=== PATIENT | male | born 1935 | race Caucasian/White ===

== ENCOUNTER 2017-11-29 09:49 | Inpatient (IN) | payer MEDICARE ==
[~2017-11-29] VITALS: Ht 172.7 cm; Wt 71.2 kg
[2017-11-29] VITALS (7 sets, daily range): BP systolic 85–102; BP diastolic 45–58
[2017-11-29 10:07] LABS: BASOPHILS # (AUTO) 0.1 K/uL (0.0-8.0); BASOPHILS % (AUTO) 0.6 % (0.0-2.0); EOSINOPHILS % (AUTO) 0.3 % (0.0-7.0); HEMATOCRIT 25.1 % (36.7-47.1); HEMOGLOBIN 8.4 g/dL (12.5-16.3); LYMPHOCYTES # (AUTO) 0.8 K/uL (20.0-40.0); MEAN CORPUSCULAR HEMOGLOBIN 27.4 uug (23.8-33.4); MEAN CORPUSCULAR HGB CONC 34 g/dL (32.5-36.3); MEAN CORPUSCULAR VOLUME 81.7 fL (73.0-96.2); MONOCYTES # (AUTO) 1.2 K/uL (2.0-10.0); MONOCYTES % (AUTO) 9.8 % (0.0-11.0); NEUTROPHILS # (AUTO) 10.6 K/uL (1.8-8.9); NEUTROPHILS % (AUTO) 83.3 % (38.5-71.5); PLATELET COUNT (AUTO) 259 K/uL (152-348); RED BLOOD CELL COUNT(AUTO) 3.07 MIL/uL (4.06-5.63); WHITE BLOOD COUNT (AUTO) 12.7 K/uL (3.6-10.2)
[2017-11-29 10:17] LABS: CARBON DIOXIDE 25 mmol/L (21-32); CHLORIDE 102 mmol/L (98-107); CREATININE 1.1 mg/dL (0.6-1.3); GLUCOSE 104 mg/dL (74-106); POTASSIUM 3.6 mmol/L (3.5-5.1); UREA NITROGEN, BLOOD 9 mg/dL (7-18)
--- NOTE | 2017-11-29 10:30 | NUR ---
Attempted to discontinue escalante cath that pt arrived with but unsuccessful. Cath found twisted with dry bloodd noted on cath and bloody drainage in bag. Unable to deflate baloon via balloon port. at bedside for furher eval and intervention.
[2017-11-29] MEDS ORDERED: CHOL200078 PO (10:38)
[2017-11-29] MEDS ORDERED: AMLO5TAB2 PO (10:38)
[2017-11-29] MEDS ORDERED: TAMS0.4C34 PO (10:38)
[2017-11-29] MEDS ORDERED: DIVA125T2 PO (10:38)
[2017-11-29] MEDS ORDERED: RANI150T8 PO (10:38)
[2017-11-29] MEDS ORDERED: DICLOFENAC 1% TP (10:38)
[2017-11-29] MEDS ORDERED: LIDOCAINE TD (10:38)
[2017-11-29] MEDS ORDERED: PANT40TA4 PO (10:38)
[2017-11-29] MEDS ORDERED: MULT-1196 PO (10:38)
[2017-11-29] MEDS ORDERED: ATOR80TA PO (10:38)
[2017-11-29] MEDS ORDERED: CALC300T4 PO (10:38)
[2017-11-29] MEDS ORDERED: ASPI-869 PO (10:38)
[2017-11-29] MEDS ORDERED: ALPR0.255 PO (10:38)
[2017-11-29] MEDS ORDERED: SUCR1TAB PO (10:38)
[2017-11-29] MEDS ORDERED: TRAM50TA2 PO (10:38)
[2017-11-29] MEDS ORDERED: CHOL500050 PO (10:38)
[2017-11-29] MEDS ORDERED: DULO30CA2 PO (10:38)
[2017-11-29] MEDS ORDERED: TRAZ-144 PO ×2 (10:38)
[2017-11-29] MEDS ORDERED: ABH CREAM TP (10:44)
[2017-11-29] MEDS ORDERED: CARB1DRO OP (10:44)
[2017-11-29] MEDS ORDERED: MISCELLANEOUS MED INJ ONE (11:15)
--- NOTE | 2017-11-29 11:20 | NUR ---
Pharmacy note: Mineral Oil not available (as orderd by ) per Amarilys in pharmacy.
[2017-11-29] MEDS ORDERED: LORAZEPAM 2 MG/1 ML VIAL ONE (11:40)
[2017-11-29] MEDS ORDERED: LORAZEPAM 2 MG/1 ML VIAL IM ONE (11:45)
[2017-11-29] MEDS ORDERED: LIDOCAINE 2% (UROJET) 10 ML JELLY MM ONE ×4 (11:49→13:15)
--- NOTE | 2017-11-29 12:00 | NUR ---
Existing f/c d/c with moderate amount hematuria with clots noted. Attemtped to place new f/c 16fr, 18 fr (3-way), 16fr (coude) with no success. Dr. Church notified.
--- NOTE | 2017-11-29 12:20 | NUR ---
Dr. Kaba in to see pt, pt to be admitted to tele.
[2017-11-29] MEDS ORDERED: LABETALOL HCL 100 MG/20 ML VIAL IV ONE (12:30)
--- NOTE | 2017-11-29 12:40 | NUR ---
Pt sleeping with NAD noted at this time.
--- NOTE | 2017-11-29 12:50 | NUR ---
Correction to earlier note, pt to be admitted to m/s not tele.
--- NOTE | 2017-11-29 13:15 | NUR ---
F/C 16fr(coude) placed by Dr. Chato Ray.
[2017-11-29 13:27] LABS: *BILIRUBIN,URIN NEGATIVE (NEGATIVE); *BLOOD, URINE 3+ (NEGATIVE); *CLARITY,URINE CLEAR (CLEAR); *COLOR,URINE YELLOW (YELLOW); *KETONES,URINE NEGATIVE (NEGATIVE); *UROBILINOGEN,URINE 0.2 E.U./dl (NORMAL); LEUKOCYTE ESTERASE ,URINE 3+ (NEGATIVE); NITRITE, URINE NEGATIVE (NEGATIVE); UGLUCOSE NEGATIVE (NEGATIVE)
[2017-11-29 13:30] LABS: *PROTEIN,URINE 3+ (NEGATIVE)
[2017-11-29 13:31] LABS: BACTERIA,URINE FEW /HPF (NONE SEEN); RBC,URINE TNTC /HPF (0-3); SQUAMOUS EPITHELIAL CELL,UR FEW /HPF (NONE SEEN)
--- NOTE | 2017-11-29 13:55 | NUR ---
Pt trans to m/s floor, NAD noted.
--- NOTE | 2017-11-29 14:44 | NUR ---
82 YEAR OLD MALE ADMITTED TO ROOM 212 FOR URINARY RETENTION AND HEMATURIA ,PT IS CONFUSED ,MD CALLED FOR ADMISSION ORDERS.
[2017-11-29] MEDS ORDERED: ONDANSETRON 4 MG/2 ML VIAL IV PRN (15:00)
[2017-11-29] MEDS ORDERED: MAGNESIUM HYDROXIDE 30 ML LIQUID UDC PO PRN (15:00)
[2017-11-29] MEDS ORDERED: Z GUARD REMEDY PASTE 57 GM TUBE TOP PRN (15:00)
[2017-11-29] MEDS: IV NS 1000 ML 1,000 ML IV PRN ×2 (15:01→21:45)
[2017-11-29] MEDS: ACETAMINOPHEN 325 MG TABLET PO PRN (16:54)
[2017-11-29] MEDS ORDERED: CALCIUM CARBONATE 500 MG TAB.CHEW PO PRN (17:15)
[2017-11-29] MEDS ORDERED: CALCIUM CARBONATE 500 MG PO PRN (17:15)
[2017-11-29] MEDS ORDERED: TRAZODONE 50 MG TABLET PO PRN (17:15)
[2017-11-29] MEDS ORDERED: Medication Not On Formulary EA (Atorvastatin Calcium (Lipitor) 1 TAB) PO SCH (17:15)
[2017-11-29] MEDS ORDERED: TRAMADOL HCL 50 MG TABLET PO PRN (17:15)
[2017-11-29] MEDS: PANTOPRAZOLE SODIUM 40 MG TABLET.DR PO SCH (17:21)
--- NOTE | 2017-11-29 19:20 | NUR ---
Received [t lying in bed. Asleep appears lethargic, arouse to tactile stimuli. Verbal but confused. only saying 1 word. BP is low at this time 86/42 with oral temperature of 100.3. Cooling measure initiated and place pt on Trendelenburg position. Will continue to monitor BP and temp. IV on right wrist intact and patent. IVF NS 75cc/hr running. Safety measure initiated and call burns within reach.
--- NOTE | 2017-11-29 20:15 | NUR ---
BP still down to 82/38. IVF increase to 125cc/hr. Temperature down to 97.4. Kept on Trendelenburg position, increase O2 to 3LPM via NC. Patient remains arousable to verbal and tactile stimuli. Doctor Kaba notified. Awaiting for any order.
[2017-11-29] MEDS: ATORVASTATIN 40 MG TABLET PO SCH (20:18)
[2017-11-29] MEDS: SUCRALFATE 1 G TABLET PO SCH (20:18)
--- NOTE | 2017-11-29 20:30 | NUR ---
Doctor Kaba with order to give IV bolus of NS to total 500cc. Order carried out. Continue to monitor pt. BP at this time at 102/52.
[2017-11-29] MEDS: DIVALPROEX 125 MG TABLET.DR PO SCH (21:00)
[2017-11-29] MEDS: TRAZODONE 50 MG TABLET PO SCH (21:00)
--- NOTE | 2017-11-29 21:35 | NUR ---
IV bolus of 500cc total done. Pt still appears lethargic although arouse to verbal and tactile stimuli. Doses back to sleep after stimulation In no acute distress. BP ranging from 88/40 to 92/47. .
--- NOTE | 2017-11-29 21:52 | NUR ---
Stephania and Yovana held, pt still lethargic and BP still on the low side.
--- NOTE | 2017-11-29 22:10 | NUR ---
pt Blood pressure down to 73/30, pt still appears lethargic although arouse briefly to tactile stimuli. Doctor Kaba made aware and order to transfer pt to the unit.
[2017-11-29] MEDS ORDERED: NOREPINEPHRINE BITARTRATE 8 MG in IV DEXTROSE 5% 500 ML IV PRN (22:15)
--- NOTE | 2017-11-29 22:30 | NUR ---
Pt transfer to CCU, Report given to CCU nurse Tiarra. Pt latest BP 88/40. Compensation And Benefits Manager Rola will notify pt family of transfer to the unit.
--- NOTE | 2017-11-29 22:50 | NUR ---
Admitted from [facility] Floor to CCU Room 5 via bed under the services of Dr. Kaba/[facility] accompanied by floor RNs. Dx: Hypotension. Pt drowsy, arousable. Skin warm and dry. Resp. easy and regular on O2 3L/min. In no apparent acute distress. Please see CCU flowsheet for full assessment and clinical data.
--- NOTE | 2017-11-29 22:59 | NUR ---
transferred to ccu bed 5 via bed,pt"FRANCA stephens WAS NOTIFIED REGARDING TRANSFER TO HIGHER LEVEL OF CARE FOR CLOSE MONITORING AND SKILLED ASSESSMENT PER DR. RENE'S ORDER.
[2017-11-29] MEDS: PIPERACILLIN SODIUM/TAZOBACTAM 4.5 G in IV DEXTROSE 5% 50 ML IV SCH (23:23)
--- NOTE | 2017-11-29 23:30 | NUR ---
Pt being closely monitored. SBP low 90's and is asymptomatic. Pt has patent IV access right wrist g. 22. Attempted couple to times to establish a better gauge IV for vasopressor, however pt gets ballistic and uncooperative.
[2017-11-29] MEDS ORDERED: NOREPINEPHRINE BITARTRATE 4 MG/4 ML VIAL IV ONE (23:46)
[2017-11-30] VITALS (93 sets, daily range): BP systolic 73–127; BP diastolic 35–67
[2017-11-30] MEDS ORDERED: NOREPINEPHRINE BITARTRATE 8 MG in IV DEXTROSE 5% 500 ML IV PRN ×2
--- NOTE | 2017-11-30 04:00 | NUR ---
Pt gradually awakens, needy and loud; is very confused and manipulative. Refuses further attempts to establish new IV access. For close monitoring. Levophed drip titration in progress.
[2017-11-30 05:46] LABS: BASOPHILS # (AUTO) 0.1 K/uL (0.0-8.0); BASOPHILS % (AUTO) 0.4 % (0.0-2.0); EOSINOPHILS % (AUTO) 0.1 % (0.0-7.0); HEMATOCRIT 23.3 % (36.7-47.1); HEMOGLOBIN 7.6 g/dL (12.5-16.3); LYMPHOCYTES # (AUTO) 1.4 K/uL (20.0-40.0); MEAN CORPUSCULAR HEMOGLOBIN 26.7 uug (23.8-33.4); MEAN CORPUSCULAR HGB CONC 33 g/dL (32.5-36.3); MEAN CORPUSCULAR VOLUME 81.8 fL (73.0-96.2); MONOCYTES # (AUTO) 1.9 K/uL (2.0-10.0); MONOCYTES % (AUTO) 6.9 % (0.0-11.0); NEUTROPHILS # (AUTO) 23.7 K/uL (1.8-8.9); NEUTROPHILS % (AUTO) 87.6 % (38.5-71.5); PLATELET COUNT (AUTO) 194 K/uL (152-348); RED BLOOD CELL COUNT(AUTO) 2.85 MIL/uL (4.06-5.63); WHITE BLOOD COUNT (AUTO) 27.1 K/uL (3.6-10.2)
[2017-11-30 05:59] LABS: ALANINE AMINOTRANSFERASE 16 U/L (16-63); ALKALINE PHOSPHATASE 73 U/L (50-136); ASPARTATE AMINOTRANSFERASE 29 U/L (15-37); BILIRUBIN,TOTAL 0.5 mg/dL (0.2-1.0); CARBON DIOXIDE 23 mmol/L (21-32); CHLORIDE 104 mmol/L (98-107); CHOLESTEROL 204 mg/dL (<200); CREATININE 1.4 mg/dL (0.6-1.3); GLUCOSE 121 mg/dL (74-106); HDL CHOLESTEROL 44 mg/dL (40-60); MAGNESIUM 1.3 mg/dL (1.8-2.4); POTASSIUM 4.1 mmol/L (3.5-5.1); TOTAL PROTEIN, SERUM 6.5 g/dL (6.4-8.2); TRIGLYCERIDES 73 MG/DL (30-150); UREA NITROGEN, BLOOD 18 mg/dL (7-18)
[2017-11-30 06:03] LABS: THYROID STIMULATING HORMONE 1.724 mIU/mL (0.358-3.740)
[2017-11-30] MEDS: PANTOPRAZOLE SODIUM 40 MG TABLET.DR PO SCH ×2 (07:19→16:46)
[2017-11-30] MEDS: PIPERACILLIN SODIUM/TAZOBACTAM 4.5 G in IV DEXTROSE 5% 50 ML IV SCH (07:19)
--- NOTE | 2017-11-30 07:23 | NUR ---
Upon initial assessment: Pt. awake restless agitated attempting to get out of bed unsupervised, and with c/of pain and lots of discomfort on right wrist pain. Area assessed and extravasation noted. A new IV inserted to LFA. called and notified orders received.
[2017-11-30] MEDS: SUCRALFATE 1 G TABLET PO SCH ×4 (07:32→21:00)
[2017-11-30] MEDS: HYDROCODONE/APAP 5-325MG TABLET PO PRN (08:12)
[2017-11-30] MEDS: TAMSULOSIN HCL 0.4 MG CAP.SR.24H PO SCH (08:13)
[2017-11-30] MEDS: DULOXETINE 30 MG CAPSULE.DR PO SCH (08:13)
--- NOTE | 2017-11-30 08:45 | NUR ---
Hema Go Attending for pt. in the unit to examine patient, full report given.
[2017-11-30] MEDS: LORAZEPAM 2 MG/1 ML VIAL IV PRN ×2 (08:47→18:34)
[2017-11-30] MEDS: DIVALPROEX 125 MG TABLET.DR PO SCH ×2 (08:52→21:00)
[2017-11-30] MEDS ORDERED: ASPIRIN EC 325 MG TABLET.DR PO SCH (09:00)
[2017-11-30] MEDS ORDERED: AMLODIPINE 5 MG TABLET PO SCH (09:00)
[2017-11-30] MEDS: NITROGLYCERIN OINT 1 GM PACKET TP SCH ×2 (09:43→21:08)
[2017-11-30] MEDS: MEROPENEM 1 G in IV NORMAL SALINE 100 ML IV SCH ×2 (11:55→23:30)
[2017-11-30] MEDS ORDERED: VANCOMYCIN IV 1 G in PREMIXED 0 EACH IV ONE (12:00)
[2017-11-30 12:11] LABS: *CREATININE,URINE 89.5 mg/dL (30-125); *URINE TOTAL PROTEIN RANDOM 163.1 mg/dL (<150/24HR)
[2017-11-30 12:12] LABS: *BILIRUBIN,URIN NEGATIVE (NEGATIVE); *BLOOD, URINE 3+ (NEGATIVE); *CLARITY,URINE CLOUDY (CLEAR); *COLOR,URINE YELLOW (YELLOW); *KETONES,URINE NEGATIVE (NEGATIVE); *PROTEIN,URINE 2+ (NEGATIVE); *UROBILINOGEN,URINE 0.2 E.U./dl (NORMAL); LEUKOCYTE ESTERASE ,URINE 2+ (NEGATIVE); NITRITE, URINE NEGATIVE (NEGATIVE); PH,URINE 5.5 (5.0-8.0); UGLUCOSE NEGATIVE (NEGATIVE)
--- NOTE | 2017-11-30 12:42 | NUR ---
Clinical Pharmacy Note: Vancomycin Dosing per Pharmacy Subjective: Vancomycin IV to start on this 82 yo male patient for Septic Shock likely 2/2 to UTI Objective: BUN 18/Scr 1.4 WBC 27.1 Temperature 99 ht 172.7 cm wt 71 kg Assessment/Plan: Due to advanced age & decreased renal function will dose by level for now. Will give vanco 1gm IVPB x1 today at noon & check vanco random level tomorrow with am labs fo further dosing. Will follow daily.
[2017-11-30 13:18] LABS: BACTERIA,URINE FEW /HPF (NONE SEEN); RBC,URINE 20-50 /HPF (0-3); SQUAMOUS EPITHELIAL CELL,UR NONE SEEN /HPF (NONE SEEN); WBC,URINE TNTC /HPF (0-3)
[2017-11-30 13:19] LABS: CALCIUM OXALATE CRYSTALS,UR FEW /HPF (NONE SEEN)
[2017-11-30] MEDS: IV NS 1000 ML 1,000 ML IV PRN (14:23)
--- NOTE | 2017-11-30 15:01 | NUR ---
Dr. Pepe in the unit to examine patient; full report given.
--- NOTE | 2017-11-30 15:09 | NUR ---
PICC line placement in progress.
[2017-11-30] MEDS: MAGNESIUM SULFATE/D5W 100 ML IV SCH ×4 (16:45→20:02)
--- NOTE | 2017-11-30 18:10 | NUR ---
patient becoming restless more confused wanting to go "Upstairs to his room to see his " reorientated patient, patient climbing out of bed pulling of lines and monitors. patient became combative to nurses during reorientation and having him sit back in bed. patient refused and bri simons called. prn ativan given. bri simons continued for 20 minutes. patient persistant on seeing his , until he fell asleep.
--- NOTE | 2017-11-30 20:00 | NUR ---
Drowsy, arousable. Resp easy and regular. Blood transfusion completed, no reactions noted. On low dose Levophed drip, titrated according to parameters. Safety precautions observed at all times. Please see CCU flowsheet for trends and clinical data.
[2017-11-30] MEDS: TRAZODONE 50 MG TABLET PO SCH (21:00)
[2017-11-30] MEDS: ATORVASTATIN 40 MG TABLET PO SCH (21:00)
[2017-12-01] VITALS (30 sets, daily range): BP systolic 88–149; BP diastolic 40–101
--- NOTE | 2017-12-01 00:01 | NUR ---
Noted increasing agitation and restlessness, given IV Ativan with immediate relief. AM care rendered and tolerated well. Levophed drip turned off. Will continue to monitor.
[2017-12-01] MEDS: LORAZEPAM 2 MG/1 ML VIAL IV PRN ×3 (00:07→22:53)
[2017-12-01] MEDS: IV NS 1000 ML 1,000 ML IV PRN ×2 (03:55→22:53)
[2017-12-01 05:17] LABS: ALANINE AMINOTRANSFERASE 9 U/L (16-63); ALKALINE PHOSPHATASE 66 U/L (50-136); ASPARTATE AMINOTRANSFERASE 21 U/L (15-37); BILIRUBIN,TOTAL 0.5 mg/dL (0.2-1.0); CARBON DIOXIDE 24 mmol/L (21-32); CHLORIDE 104 mmol/L (98-107); CREATINE KINASE, TOTAL 58 U/L (39-308); CREATININE 1.1 mg/dL (0.6-1.3); GLUCOSE 87 mg/dL (74-106); MAGNESIUM 2.2 mg/dL (1.8-2.4); PHOSPHOROUS 2.8 mg/dL (2.5-4.9); POTASSIUM 3.4 mmol/L (3.5-5.1); TOTAL PROTEIN, SERUM 5.6 g/dL (6.4-8.2); UREA NITROGEN, BLOOD 19 mg/dL (7-18); VANCOMYCIN,RANDOM 9.5 ug/mL (18.0-26.0)
--- NOTE | 2017-12-01 05:30 | NUR ---
Restful night. Remains off Levophed and VS stable. See flowsheet for trends and clinical data.
[2017-12-01 06:37] LABS: BASOPHILS # (AUTO) 0.1 K/uL (0.0-8.0); BASOPHILS % (AUTO) 0.7 % (0.0-2.0); EOSINOPHILS # (AUTO) 0.3 K/uL (0.0-0.7); EOSINOPHILS % (AUTO) 2.6 % (0.0-7.0); HEMATOCRIT 21.2 % (36.7-47.1); LYMPHOCYTES # (AUTO) 0.7 K/uL (20.0-40.0); LYMPHOCYTES % (AUTO) 5.9 % (20.5-51.5); MEAN CORPUSCULAR HEMOGLOBIN 27.6 uug (23.8-33.4); MEAN CORPUSCULAR HGB CONC 34 g/dL (32.5-36.3); MEAN CORPUSCULAR VOLUME 81.1 fL (73.0-96.2); MONOCYTES # (AUTO) 0.9 K/uL (2.0-10.0); MONOCYTES % (AUTO) 7.5 % (0.0-11.0); NEUTROPHILS # (AUTO) 10.4 K/uL (1.8-8.9); NEUTROPHILS % (AUTO) 83.3 % (38.5-71.5); PLATELET COUNT (AUTO) 148 K/uL (152-348); RED BLOOD CELL COUNT(AUTO) 2.61 MIL/uL (4.06-5.63); WHITE BLOOD COUNT (AUTO) 12.5 K/uL (3.6-10.2)
[2017-12-01 06:42] LABS: HEMOGLOBIN 7.2 g/dL (12.5-16.3)
--- NOTE | 2017-12-01 06:50 | NUR ---
Son called in from [facility], condition update given; very appreciative of care and information.
[2017-12-01] MEDS: DULOXETINE 30 MG CAPSULE.DR PO SCH (08:15)
[2017-12-01] MEDS: TAMSULOSIN HCL 0.4 MG CAP.SR.24H PO SCH (08:15)
[2017-12-01] MEDS: PANTOPRAZOLE SODIUM 40 MG TABLET.DR PO SCH ×2 (08:15→17:16)
[2017-12-01] MEDS: NITROGLYCERIN OINT 1 GM PACKET TP SCH ×2 (08:16→20:08)
[2017-12-01] MEDS: SUCRALFATE 1 G TABLET PO SCH ×4 (08:18→20:08)
[2017-12-01] MEDS: DIVALPROEX 125 MG TABLET.DR PO SCH ×2 (08:23→20:07)
--- NOTE | 2017-12-01 08:45 | NUR ---
Hema Hu Attending in the unit to see and examine patient. Orders received see orders hx.
[2017-12-01] MEDS ORDERED: ASPIRIN EC 325 MG TABLET.DR PO SCH (09:00)
[2017-12-01] MEDS ORDERED: VANCOMYCIN IV 1 G in PREMIXED 0 EACH IV SCH (09:00)
[2017-12-01] MEDS ORDERED: ASPIRIN EC 81 MG TABLET.DR PO SCH (09:00)
--- NOTE | 2017-12-01 10:45 | NUR ---
GI physician Dr. Das in the unit to see and examine patient, full report given. As stated by physician, "will follow up tomorrow at this time patient with sbp in the border line."
--- NOTE | 2017-12-01 11:21 | NUR ---
Clinical Pharmacy Note: Vancomycin Dosing per Pharmacy Subjective: Vancomycin IV to continue on this 82 yo male patient for Septic Shock likely 2/2 to UTI Objective: BUN 19/Scr 1.1 WBC 12.5 Temperature 98.1 Vanco random level: 9.5 (with am labs) ht 172.7 cm wt 71 kg Assessment/Plan: Since srcr has decreased, will start vanco 1gm IVPB q18h for predicted vanco level of 16.9 mcg/ml at steady state. 1st dose is due today 0900. Will monitor renal function & adjust the dose if needed. Plan to draw vanco trough level before 4 th dose (not yet ordered). Will follow daily.
[2017-12-01] MEDS: MEROPENEM 1 G in IV NORMAL SALINE 100 ML IV SCH (11:38)
--- NOTE | 2017-12-01 12:38 | NUR ---
Silva Hu from ID services in the unit to examine patient, full report given.
[2017-12-01] MEDS ORDERED: POTASSIUM CHLORIDE 20 MEQ TAB.PRT.SR PO ONE (13:15)
--- NOTE | 2017-12-01 15:00 | NUR ---
Patient with an episode of restlessness and agitation, medicated accordingly, patient remains agitated restless attempting to get out of bed unsupervised, and also attempting to remove iv line escalante catheter, and heart monitor wires.
[2017-12-01] MEDS: HYDROCODONE/APAP 5-325MG TABLET PO PRN (15:46)
[2017-12-01] MEDS: ALPRAZOLAM 0.25 MG TABLET PO PRN (16:00)
[2017-12-01] MEDS ORDERED: LORAZEPAM 2 MG/1 ML VIAL IV ONE (17:15)
--- NOTE | 2017-12-01 17:20 | NUR ---
Attending Fritz Garrido called to be notified of pt's been combative, restless, agitated and attempts to get out of bed unsupervised. N.P. also notified of pt's unsteady gait, and weakness. Orders received.
[2017-12-01] MEDS: TRAZODONE 50 MG TABLET PO SCH (20:07)
[2017-12-01] MEDS: ATORVASTATIN 40 MG TABLET PO SCH (20:07)
[2017-12-01] MEDS: CEFEPIME HCL 1 G in IV DEXTROSE 5% 50 ML IV SCH (21:26)
[2017-12-02] VITALS (16 sets, daily range): BP systolic 92–159; BP diastolic 54–102
[2017-12-02] MEDS ORDERED: FUROSEMIDE 40 MG/4 ML VIAL IV STA (00:24)
[2017-12-02] MEDS ORDERED: ALBUMIN HUMAN 5% 250 ML IV ONE (00:30)
--- NOTE | 2017-12-02 00:30 | NUR ---
Noted increased chest congestion; reported to MD CONI's GROUP. Orders received.
[2017-12-02 04:57] LABS: BASOPHILS % (AUTO) 0.4 % (0.0-2.0); EOSINOPHILS % (AUTO) 0.2 % (0.0-7.0); HEMATOCRIT 24.6 % (36.7-47.1); HEMOGLOBIN 8.4 g/dL (12.5-16.3); LYMPHOCYTES # (AUTO) 0.6 K/uL (20.0-40.0); LYMPHOCYTES % (AUTO) 5.5 % (20.5-51.5); MEAN CORPUSCULAR HEMOGLOBIN 27.6 uug (23.8-33.4); MEAN CORPUSCULAR HGB CONC 34 g/dL (32.5-36.3); MONOCYTES # (AUTO) 0.7 K/uL (2.0-10.0); NEUTROPHILS # (AUTO) 8.8 K/uL (1.8-8.9); NEUTROPHILS % (AUTO) 86.9 % (38.5-71.5); PLATELET COUNT (AUTO) 173 K/uL (152-348); RED BLOOD CELL COUNT(AUTO) 3.04 MIL/uL (4.06-5.63); WHITE BLOOD COUNT (AUTO) 10.1 K/uL (3.6-10.2)
[2017-12-02 05:09] LABS: IRON, SERUM 14 ug/dL (50-175)
[2017-12-02] MEDS: CEFEPIME HCL 1 G in IV DEXTROSE 5% 50 ML IV SCH ×3 (05:11→21:45)
[2017-12-02 05:26] LABS: CARBON DIOXIDE 25 mmol/L (21-32); CHLORIDE 106 mmol/L (98-107); CREATININE 0.9 mg/dL (0.6-1.3); FERRITIN 183 ng/mL (26-388); GLUCOSE 98 mg/dL (74-106); MAGNESIUM 1.6 mg/dL (1.8-2.4); POTASSIUM 3.4 mmol/L (3.5-5.1); UREA NITROGEN, BLOOD 14 mg/dL (7-18)
--- NOTE | 2017-12-02 06:15 | NUR ---
Gilson SCHULTE called from [facility], updated / patient / nursing views. Given MD CONI's telephone number.
[2017-12-02] MEDS: PANTOPRAZOLE SODIUM 40 MG TABLET.DR PO SCH ×2 (07:46→16:45)
[2017-12-02] MEDS: SUCRALFATE 1 G TABLET PO SCH ×5 (07:53→20:43)
[2017-12-02] MEDS: TAMSULOSIN HCL 0.4 MG CAP.SR.24H PO SCH (08:02)
[2017-12-02] MEDS: DULOXETINE 30 MG CAPSULE.DR PO SCH (08:02)
[2017-12-02] MEDS: NITROGLYCERIN OINT 1 GM PACKET TP SCH (08:03)
[2017-12-02] MEDS: DIVALPROEX 125 MG TABLET.DR PO SCH ×2 (08:04→20:43)
--- NOTE | 2017-12-02 08:44 | NUR ---
Attending Fritz Garrido in the unit to examine patient, report given and orders received. Addendum: 12/02/17 at 0847 by GYPSY ARREDONDO RN At this time, a call to Mr. Devonte Olivas to inform him of possible EGD, and possible colonoscopy this information discussed with Mr. Whitney by Fritz Hannah. Mr. Whitney was updated on pt's current condition and plan of care, with all questions answered.
[2017-12-02] MEDS ORDERED: MAGNESIUM SULFATE/D5W 100 ML IV SCH (09:00)
[2017-12-02 11:06] LABS: A/G RATIO 0.6 (0.7-1.7); ALPHA-1-GLOBULIN 0.4 g/dL (0.0-0.4); ALPHA-2-GLOBULIN 0.6 g/dL (0.4-1.0); BETA GLOBULIN 0.8 g/dL (0.7-1.3); GAMMA GLOBULIN 1.4 g/dL (0.4-1.8); GLOBULIN, TOTAL 3.2 g/dL (2.2-3.9); M-SPIKE Not Observed g/dL (Not Observed)
[2017-12-02] MEDS ORDERED: POTASSIUM CHLORIDE 20 MEQ TAB.PRT.SR PO ONE (12:45)
[2017-12-02] MEDS: LORAZEPAM 2 MG/1 ML VIAL IV PRN ×3 (15:35→23:51)
--- NOTE | 2017-12-02 15:35 | NUR ---
One dose of Lorazepan administered for restlessness agitation and disruptive behavior, patient attempting to get off bed unsupervised. Vial accidentally dispose before scanning. pharmacist notified today 12/03/17.
--- NOTE | 2017-12-02 16:25 | NUR ---
Patient refusing to let IV PICC line dressing to be changed.
--- NOTE | 2017-12-02 16:45 | NUR ---
Cardiology services Dr. Pepe int he unit to see and examine patient, full report given.
--- NOTE | 2017-12-02 18:24 | NUR ---
Hematology services Dr. Jameson in the unit to see and examine patient, full report given.
--- NOTE | 2017-12-02 19:18 | NUR ---
RECEIVED PT SEVERELY AGITATED & RESTLESS. ON O2 @ 3LNC W/ O2 SAT OF 96%. PICC LINE ON ADAMA INTACT & PATENT. AFEBRILE. BP STABLE. MEDICATED W/ ATIVAN 1MG IVP. REPOSITIONED ON HIS SIDE W/ HOB ELEVATED.
--- NOTE | 2017-12-02 20:40 | NUR ---
PICC LINE DRSG CHANGED. & FLUSHED W/ SALINE. WATCHED PT CLOSELY.
[2017-12-02] MEDS: ATORVASTATIN 40 MG TABLET PO SCH (20:44)
[2017-12-02] MEDS: TRAZODONE 50 MG TABLET PO SCH (20:45)
[2017-12-02] MEDS: ALPRAZOLAM 0.25 MG TABLET PO PRN (22:29)
[2017-12-02] MEDS: ACETAMINOPHEN 325 MG TABLET PO PRN (22:29)
--- NOTE | 2017-12-02 22:29 | NUR ---
PT. CONTINOUSLY AGITATED & RESTLESS, MEDICATED W/ XANAX 0.25MG PO. O2 SAT ADEQ.
[2017-12-03 00:03] VITALS: BP 152/99
[2017-12-03 04:00] VITALS: BP 135/95
--- NOTE | 2017-12-03 04:00 | NUR ---
AM CARE DONE. ORAL CARE DONE. REPOSITIONED ON HIS SIDE W/ HOB ELEVATED. REMAINS AGITATED & RESTLESS.
[2017-12-03 04:52] LABS: BASOPHILS # (AUTO) 0.1 K/uL (0.0-8.0); EOSINOPHILS # (AUTO) 0.3 K/uL (0.0-0.7); EOSINOPHILS % (AUTO) 3.9 % (0.0-7.0); HEMATOCRIT 27.4 % (36.7-47.1); HEMOGLOBIN 9.2 g/dL (12.5-16.3); LYMPHOCYTES # (AUTO) 1.1 K/uL (20.0-40.0); LYMPHOCYTES % (AUTO) 13.3 % (20.5-51.5); MEAN CORPUSCULAR HEMOGLOBIN 27.2 uug (23.8-33.4); MEAN CORPUSCULAR HGB CONC 34 g/dL (32.5-36.3); MONOCYTES # (AUTO) 0.9 K/uL (2.0-10.0); NEUTROPHILS % (AUTO) 70.8 % (38.5-71.5); PLATELET COUNT (AUTO) 221 K/uL (152-348); RED BLOOD CELL COUNT(AUTO) 3.39 MIL/uL (4.06-5.63); WHITE BLOOD COUNT (AUTO) 8.4 K/uL (3.6-10.2)
[2017-12-03 05:01] LABS: CARBON DIOXIDE 27 mmol/L (21-32); CHLORIDE 103 mmol/L (98-107); CREATININE 0.8 mg/dL (0.6-1.3); GLUCOSE 107 mg/dL (74-106); POTASSIUM 2.9 mmol/L (3.5-5.1); UREA NITROGEN, BLOOD 8 mg/dL (7-18)
[2017-12-03] MEDS: CEFEPIME HCL 1 G in IV DEXTROSE 5% 50 ML IV SCH ×2 (05:24→14:02)
--- NOTE | 2017-12-03 06:30 | NUR ---
THEODORA WEBSTER EQUIPMENT MAINTENANCE ENGINEER CALLED RE: K+ LEVEL -2.9, MAG-1.6 W/ ORDERS
[2017-12-03] MEDS: POTASSIUM CHLORIDE 50 ML IV SCH ×4 (06:43→10:42)
[2017-12-03] MEDS: MAGNESIUM SULFATE/D5W 100 ML IV SCH ×2 (06:51→07:58)
[2017-12-03] MEDS: PANTOPRAZOLE SODIUM 40 MG TABLET.DR PO SCH ×2 (07:02→17:03)
--- NOTE | 2017-12-03 07:28 | NUR ---
RECEIVED AN 82 Y/O M PT FROM [facility], A CASE OF URINE RETENTION/HEAMATURIA. CONFUSED DISORIENTED , ON BED ASLEEP, BREATHING VIA N/C 3LPM, CONNECTED TO CHEMICAL SALES REPRESENTATIVE SHOWING SR, PT HAS LT UPPER PICC LINE RECEIVING MG AND KCL IV FOR ELECTROLYTE REPLACEMENT. URINATING VIA FC SHOWING CLEAR YELLOW URINE.
[2017-12-03] MEDS: SUCRALFATE 1 G TABLET PO SCH ×3 (07:51→17:03)
[2017-12-03 08:00] VITALS: BP 132/65
[2017-12-03] MEDS: TAMSULOSIN HCL 0.4 MG CAP.SR.24H PO SCH (08:53)
[2017-12-03] MEDS: DULOXETINE 30 MG CAPSULE.DR PO SCH (08:53)
[2017-12-03] MEDS: DIVALPROEX 125 MG TABLET.DR PO SCH (08:55)
[2017-12-03] MEDS ORDERED: CYANOCOBALAMIN 1,000 MCG TABLET PO SCH (09:00)
[2017-12-03] MEDS ORDERED: FERROUS SULFATE 325 MG TABEC PO SCH (09:00)
--- NOTE | 2017-12-03 10:15 | NUR ---
SEEN BY ELECTROFORMER THEODORA WEBSTER ASSESSMENT DONE, NO NEW ORDERS.
[2017-12-03] MEDS: LORAZEPAM 2 MG/1 ML VIAL IV PRN (11:30)
--- NOTE | 2017-12-03 11:30 | NUR ---
PATIENT BECAME AGITATED, REFUSING O2 N/C, TRYING TO GET OUT OF BED, ATIVAN IV GIVEN.
[2017-12-03 12:00] VITALS: BP 130/83
--- NOTE | 2017-12-03 12:45 | NUR ---
PT RECEIVED 50% OF HIS BREAKFAST TOLERATED WELL, AND RECEIVED ALL OF HIS ORAL MEDICATION Addendum: 12/03/17 at 1248 by JUSTIN KENT RN WRONG NOTE TIME. CORRECT TIME IS 10:35
--- NOTE | 2017-12-03 13:20 | NUR ---
PHYSICAL THERAPIST CAME, PT WALKED 2FT AND TANGLED FEET ON BED, THEN BACK TO BED
--- NOTE | 2017-12-03 14:35 | NUR ---
PT COMPLAINING OF PAIN IN BACK, LEG, HIP. AND NORCO PO GIVEN. PT CONFUSED TRYING MULTI TIMES TO GET OUT OF BED, REALITY ORIENTATION REINFORCED, ALARM BEDS ON. PT HAD A SMALL AMOUNT OF FOOD FOR LUNCH, LOW APPETITE.
[2017-12-03] MEDS: HYDROCODONE/APAP 5-325MG TABLET PO PRN (14:36)
[2017-12-03] MEDS ORDERED: FERR325T28 PO (15:51)
[2017-12-03] MEDS ORDERED: TRAZ-144 PO (15:51)
[2017-12-03] MEDS ORDERED: PANT40TA2 PO (15:51)
[2017-12-03] MEDS ORDERED: ACET325T53 PO (15:51)
[2017-12-03] MEDS ORDERED: ATOR40TA PO (15:51)
[2017-12-03] MEDS ORDERED: TAMS-3 PO (15:51)
[2017-12-03] MEDS ORDERED: LEVO500T2 PO (15:51)
[2017-12-03 16:00] VITALS: BP 141/85
--- NOTE | 2017-12-03 16:00 | NUR ---
ORDER BY DR PARISH FOR PATIENTS DISCHARGE TO [facility], PREPARING FOR PTS DISCHARGE TO BE AT ABOUT 18:00 TODAY
--- NOTE | 2017-12-03 17:04 | NUR ---
REPORT GIVEN TO ROSA CRISOSTOMO AT [facility], PT RECEIVED ALL HIS DUE MEDICATION AND IS AWAITING AMBULANCE TO ARRIVE AT 18:00 FOR DISCHARGE.
[2017-12-03 18:00] VITALS: BP 124/82
--- NOTE | 2017-12-03 18:45 | NUR ---
PATIENT DISCHARGED TO [facility] VIA AMBULANCE , FULL REPORT GIVEN TO EMT, PICC LINE REMOVED, PT TOOK ALL HIS BELONGINGS.
== END 2017-12-03 18:45 | disposition home health service (06) | DRG 871 ==
LOC: ER 09:49 → MED 13:47 → CCU 22:50
PROVIDERS: ADMIT Internal Medicine; ATTEND Internal Medicine
PROC: 0TPBX0Z Removal of Drainage Device from Bladder, External Approach (ICD-10-PCS; 2017-11-29)
PROC: 02HV33Z Insertion of Infusion Device into Superior Vena Cava, Percutaneous Approach (ICD-10-PCS; principal; 2017-11-30)
PROC: 30233N1 Transfusion of Nonautologous Red Blood Cells into Peripheral Vein, Percutaneous Approach (ICD-10-PCS; 2017-11-30)
DX: A41.52 Sepsis due to Pseudomonas (principal); R65.21 Severe sepsis with septic shock; I21.A1 Myocardial infarction type 2; N17.0 Acute kidney failure with tubular necrosis; G92 Toxic encephalopathy; I50.23 Acute on chronic systolic (congestive) heart failure; E43 Unspecified severe protein-calorie malnutrition; N39.0 Urinary tract infection, site not specified; T83.83XA Hemorrhage due to genitourinary prosthetic devices, implants and grafts, initial encounter; S37.39XA Other injury of urethra, initial encounter; E87.1 Hypo-osmolality and hyponatremia; K92.2 Gastrointestinal hemorrhage, unspecified; D63.8 Anemia in other chronic diseases classified elsewhere; X50.9XXA Other and unspecified overexertion or strenuous movements or postures, initial encounter; Y92.099 Unspecified place in other non-institutional residence as the place of occurrence of the external cause; E78.5 Hyperlipidemia, unspecified; N40.1 Benign prostatic hyperplasia with lower urinary tract symptoms; R33.8 Other retention of urine; F03.90 Unspecified dementia, unspecified severity, without behavioral disturbance, psychotic disturbance, mood disturbance, and anxiety; I25.10 Atherosclerotic heart disease of native coronary artery without angina pectoris; Z95.1 Presence of aortocoronary bypass graft; K21.9 Gastro-esophageal reflux disease without esophagitis; I25.5 Ischemic cardiomyopathy; I11.0 Hypertensive heart disease with heart failure; D50.9 Iron deficiency anemia, unspecified; E55.9 Vitamin D deficiency, unspecified; E53.8 Deficiency of other specified B group vitamins; E83.42 Hypomagnesemia; Z68.23 Body mass index [BMI] 23.0-23.9, adult; R31.0 Gross hematuria; E87.6 Hypokalemia; M19.90 Unspecified osteoarthritis, unspecified site; G62.9 Polyneuropathy, unspecified
CPT/HCPCS: 36415; 51702; 70030-TC; 70450; 71045; 76770; 82746; 83550; 83605; 83735; 83970; 84100; 84153; 84155; 84156; 84165; 84300; 84443; 85025; 85730; 86850; 86900; 86901; 86920; 87040; 87077; 87086; 93005; 93307; 97116; 97530; A4217; A4663; J0692; J1940; J2060; J2185; J2543; J3370; J3475; J3480; J3490; J7030; J7050; J7060; P9016-BL; P9021

== ENCOUNTER 2017-12-31 12:25 | Emergency (ER) | payer MEDICARE, OTHER ==
[~2017-12-31] VITALS: Ht 172.7 cm; Wt 70.3 kg
[~2017-12-31 12:25] MED LIST: ABH CREAM TP; ACET325T53 PO; ALPR0.255 PO; AMLO5TAB2 PO; ATOR40TA PO; CALC300T4 PO; CARB1DRO OP; CHOL200078 PO; DICLOFENAC 1% TP; DIVA125T2 PO; DULO30CA2 PO; FERR325T28 PO; LEVO500T2 PO; LIDOCAINE TD; MULT-1196 PO; PANT40TA2 PO; SUCR1TAB PO; TAMS-3 PO; TRAM50TA2 PO; TRAZ-213 PO
[2017-12-31] MEDS ORDERED: FENTANYL CITRATE 100 MCG/2 ML AMPUL ONE (12:37)
[2017-12-31] MEDS ORDERED: MEMA10TA PO (13:05)
[2017-12-31] MEDS ORDERED: RANI150C4 PO (13:05)
[2017-12-31] MEDS ORDERED: ENSURE PO (13:05)
[2017-12-31] MEDS ORDERED: TRAZ-182 PO (13:05)
[2017-12-31 14:32] LABS: BASOPHILS % (AUTO) 0.3 % (0.0-2.0); EOSINOPHILS % (AUTO) 0.2 % (0.0-7.0); HEMATOCRIT 37.8 % (36.7-47.1); HEMOGLOBIN 12.4 g/dL (12.5-16.3); LYMPHOCYTES % (AUTO) 7.3 % (20.5-51.5); MEAN CORPUSCULAR HEMOGLOBIN 26.8 uug (23.8-33.4); MEAN CORPUSCULAR HGB CONC 33 g/dL (32.5-36.3); MEAN CORPUSCULAR VOLUME 81.8 fL (73.0-96.2); MONOCYTES # (AUTO) 1.5 K/uL (2.0-10.0); MONOCYTES % (AUTO) 11.6 % (0.0-11.0); NEUTROPHILS # (AUTO) 10.7 K/uL (1.8-8.9); NEUTROPHILS % (AUTO) 80.6 % (38.5-71.5); PLATELET COUNT (AUTO) 261 K/uL (152-348); RED BLOOD CELL COUNT(AUTO) 4.62 MIL/uL (4.06-5.63); WHITE BLOOD COUNT (AUTO) 13.3 K/uL (3.6-10.2)
[2017-12-31 14:34] LABS: *BILIRUBIN,URIN 2+ (NEGATIVE); *BLOOD, URINE 3+ (NEGATIVE); *COLOR,URINE Brown (YELLOW); *KETONES,URINE TRACE (NEGATIVE); *PROTEIN,URINE 3+ (NEGATIVE); LEUKOCYTE ESTERASE ,URINE TRACE (NEGATIVE); NITRITE, URINE POSITIVE (NEGATIVE); PH,URINE 7.5 (5.0-8.0); UGLUCOSE NEGATIVE (NEGATIVE)
[2017-12-31 14:43] LABS: CARBON DIOXIDE 26 mmol/L (21-32); CHLORIDE 95 mmol/L (98-107); CREATININE 0.9 mg/dL (0.6-1.3); GLUCOSE 105 mg/dL (74-106); POTASSIUM 3.6 mmol/L (3.5-5.1); UREA NITROGEN, BLOOD 12 mg/dL (7-18)
[2017-12-31 14:49] LABS: ALANINE AMINOTRANSFERASE 14 U/L (16-63); ALKALINE PHOSPHATASE 120 U/L (50-136); ASPARTATE AMINOTRANSFERASE 17 U/L (15-37); BILIRUBIN,DIRECT 0.2 mg/dL (0.0-0.2); BILIRUBIN,TOTAL 0.7 mg/dL (0.2-1.0); LIPASE 119 U/L (73-393); TOTAL PROTEIN, SERUM 8.1 g/dL (6.4-8.2)
[2017-12-31 14:51] LABS: *CLARITY,URINE BLOODY (CLEAR)
[2017-12-31 15:02] LABS: RBC,URINE TNTC /HPF (0-3)
[2017-12-31 15:03] LABS: BACTERIA,URINE MANY /HPF (NONE SEEN); CALCIUM OXALATE CRYSTALS,UR FEW /HPF (NONE SEEN); TRIPLE PHOSPHATE CRYSTAL,UR MODERATE /HPF (NONE SEEN); YEAST,URINE MODERATE /HPF (NONE SEEN)
[2017-12-31 15:04] LABS: SQUAMOUS EPITHELIAL CELL,UR FEW /HPF (NONE SEEN)
--- NOTE | 2017-12-31 15:46 | NUR ---
mse completed, belongings list done, dr martinez spoke to john bacon whom stated no urologist avail till wednesday and to transfer pt to another facility.
--- NOTE | 2017-12-31 15:53 | NUR ---
[place] transfer [facility] called.
[2017-12-31] MEDS ORDERED: IV NORMAL SALINE 1000 ML BAG IV ONE (16:15)
[2017-12-31] MEDS ORDERED: diphenhydrAMINE 50 MG/1 ML VIAL IV ONE (16:15)
[2017-12-31] MEDS ORDERED: GENTAMICIN SULFATE INJ 80 MG in IV DEXTROSE 5% 100 ML IV ONE (16:15)
[2017-12-31] MEDS ORDERED: LEVOFLOXACIN 500 MG/D5W 100ML PIGGYBACK IV ONE (16:15)
[2017-12-31] MEDS ORDERED: HALOPERIDOL LACTATE 5 MG/1 ML VIAL IV ONE (16:15)
[2017-12-31] MEDS ORDERED: LORAZEPAM 2 MG/1 ML VIAL IV ONE (16:15)
[2017-12-31] MEDS ORDERED: LEVOFLOXACIN 500 MG/D5W 100 ML ONE (16:16)
[2017-12-31] MEDS ORDERED: GENTAMICIN SULFATE 80 MG/2 ML VIAL ONE (16:16)
[2017-12-31] MEDS ORDERED: diphenhydrAMINE 50 MG/1 ML VIAL ONE (16:21)
[2017-12-31] MEDS ORDERED: LORAZEPAM 2 MG/1 ML VIAL ONE (16:21)
[2017-12-31] MEDS ORDERED: HALOPERIDOL LACTATE 5 MG/1 ML VIAL ONE (16:21)
--- NOTE | 2017-12-31 16:55 | NUR ---
bri zendejas was called at 1608, pt was combative and uncooperative. pt then went back to bed, sedative meds administered, iv fluids admin, pt was also changed and 550 bloody urine out. monitor now shows nsrm po2=95% on 2l 02 via n/c, bp=15/74, resp rate=16
--- NOTE | 2017-12-31 18:35 | NUR ---
dr vaughan present and evaluating the pt at the bedside.
--- NOTE | 2017-12-31 18:53 | NUR ---
monitor shows nsr, vss, awiting for [facility] to call back for transfer info.
--- NOTE | 2017-12-31 19:10 | NUR ---
sbar report to todd wang
--- NOTE | 2017-12-31 20:48 | NUR ---
[facility]ISTA FOR TRANSPORT TO [facility] ETA 1 HR
--- NOTE | 2017-12-31 22:29 | NUR ---
Patient Tranfers to [facility] ([place]) Report given to Edwina GRAVES Diagnosis: Hematuria/Sepsis Physician: Harika Location: Med/Surg
--- NOTE | 2017-12-31 22:30 | NUR ---
pt transfers to [facility]) via private ambulance. all belongings with pt. vss. no acute distress noted.
== END 2017-12-31 22:33 | disposition short-term general hospital (02) ==
LOC: ER 12:25
DX: A41.89 Other specified sepsis (principal); S32.020A Wedge compression fracture of second lumbar vertebra, initial encounter for closed fracture; N39.0 Urinary tract infection, site not specified; R31.9 Hematuria, unspecified; K21.9 Gastro-esophageal reflux disease without esophagitis; Z79.891 Long term (current) use of opiate analgesic; Z79.2 Long term (current) use of antibiotics; Z79.899 Other long term (current) drug therapy; X58.XXXA Exposure to other specified factors, initial encounter; Y93.89 Activity, other specified; Y92.89 Other specified places as the place of occurrence of the external cause; Y99.8 Other external cause status
CPT/HCPCS: 36415; 70030-TC; 71045; 83605; 83690; 85025; 85730; 86850; 86900; 86901; 87040; 87077; 87086; 93005; A4663; J1200; J1580; J1630; J1956; J2060; J3010; J7030; J7050; J7060

== ENCOUNTER 2018-02-02 09:34 | Inpatient (IN) | payer MEDICARE, OTHER ==
[~2018-02-02] VITALS: Ht 162.6 cm; Wt 57.8 kg
[~2018-02-02 09:34] MED LIST changes: -ACET325T53 PO; -ALPR0.255 PO; +ENSURE PO; -LEVO500T2 PO; +MEMA10TA PO; -MULT-1196 PO; +RANI150C4 PO; +TRAZ-182 PO; -TRAZ-213 PO
[2018-02-02] MEDS ORDERED: ALPR0.5T8 PO (09:57)
--- NOTE | 2018-02-02 10:06 | NUR ---
is attempting neck collar placement@this time
[2018-02-02] MEDS ORDERED: HALOPERIDOL LACTATE 5 MG/1 ML VIAL ONE (10:13)
[2018-02-02] MEDS ORDERED: HALOPERIDOL LACTATE 5 MG/1 ML VIAL IM ONE (10:15)
[2018-02-02 10:32] LABS: BASOPHILS # (AUTO) 0.1 K/uL (0.0-8.0); BASOPHILS % (AUTO) 0.8 % (0.0-2.0); EOSINOPHILS # (AUTO) 0.2 K/uL (0.0-0.7); EOSINOPHILS % (AUTO) 1.7 % (0.0-7.0); HEMATOCRIT 36.2 % (36.7-47.1); HEMOGLOBIN 12.1 g/dL (12.5-16.3); LYMPHOCYTES # (AUTO) 1.1 K/uL (20.0-40.0); MEAN CORPUSCULAR HEMOGLOBIN 28.2 uug (23.8-33.4); MEAN CORPUSCULAR HGB CONC 34 g/dL (32.5-36.3); MEAN CORPUSCULAR VOLUME 84.3 fL (73.0-96.2); NEUTROPHILS # (AUTO) 7.6 K/uL (1.8-8.9); NEUTROPHILS % (AUTO) 76.5 % (38.5-71.5); PLATELET COUNT (AUTO) 213 K/uL (152-348); RED BLOOD CELL COUNT(AUTO) 4.29 MIL/uL (4.06-5.63); WHITE BLOOD COUNT (AUTO) 9.9 K/uL (3.6-10.2)
[2018-02-02 10:39] LABS: CARBON DIOXIDE 29 mmol/L (21-32); CHLORIDE 99 mmol/L (98-107); CREATININE 0.8 mg/dL (0.6-1.3); GLUCOSE 102 mg/dL (74-106); POTASSIUM 3.7 mmol/L (3.5-5.1); UREA NITROGEN, BLOOD 16 mg/dL (7-18)
[2018-02-02 10:45] LABS: ALANINE AMINOTRANSFERASE 13 U/L (16-63); ALKALINE PHOSPHATASE 77 U/L (50-136); ASPARTATE AMINOTRANSFERASE 20 U/L (15-37); BILIRUBIN,DIRECT 0.1 mg/dL (0.0-0.2); BILIRUBIN,TOTAL 0.4 mg/dL (0.2-1.0)
[2018-02-02] MEDS ORDERED: ACETAMINOPHEN ES 500 MG TABLET ONE (11:37)
[2018-02-02] MEDS ORDERED: ACETAMINOPHEN ES 500 MG TABLET PO ONE (11:45)
--- NOTE | 2018-02-02 12:47 | NUR ---
Patient ate lunch with good appetite, [facility]
--- NOTE | 2018-02-02 12:57 | NUR ---
Patient is screaming... "I want to go. I love you. My neck is hurting. My back is hurting." Patient tries to get out of gurney 3x despite frequent reminders & reorientation by ER staff. Patient safety and comfort measures maintained.
[2018-02-02] MEDS ORDERED: LORAZEPAM 2 MG/1 ML VIAL IV ONE (13:00)
[2018-02-02] MEDS ORDERED: LORAZEPAM 2 MG/1 ML VIAL ONE (13:15)
--- NOTE | 2018-02-02 13:37 | NUR ---
Patient is resting comfortably on gurney with eyes closed, spo2=98% room air, pending callback from [facility] hospitalist still. Continuous pulse oximetry maintained w/ alarms set , on & audible.
--- NOTE | 2018-02-02 14:10 | NUR ---
PATIENT ARRIVED FROM ER VIA GURNEY. PATIENT IS ASLEEP, EASILY AROUSABLE. PT CAME WITH NECK COLLAR, SECURED IN PLACE. PT ADMITTED TO MED SURG. DX: S/P FALL AND NECK PAIN UNDER THE CARE OF DR. MCKEON. BELONGING LIST DONE, CARE PLAN INITIATED. WILL CALL MD FOR NEW ADMISSION ORDERS.
[2018-02-02 14:20] VITALS: BP 141/76
[2018-02-02 15:39] VITALS: BP 138/72
--- NOTE | 2018-02-02 16:30 | NUR ---
REQUESTED 1:1 SITTER FOR SAFETY DUE TO PATIENT'S HX S/P FALL AND HX OF DEMENTIA.
[2018-02-02] MEDS ORDERED: CALCIUM CARBONATE 500 MG PO PRN (16:45)
[2018-02-02] MEDS ORDERED: Medication Not On Formulary EA (Cholecalciferol (Vitamin D3) (Vitamin D3) 50,000 UNIT) PO SCH (16:45)
[2018-02-02] MEDS ORDERED: ONDANSETRON 4 MG/2 ML VIAL IV PRN (16:45)
[2018-02-02] MEDS ORDERED: ACETAMINOPHEN 325 MG TABLET PO PRN (16:45)
[2018-02-02] MEDS ORDERED: TRAMADOL HCL 50 MG TABLET PO PRN (16:45)
[2018-02-02] MEDS ORDERED: CALCIUM CARBONATE 500 MG TAB.CHEW PO PRN (17:00)
[2018-02-02 17:13] LABS: CREATINE KINASE, TOTAL 55 U/L (39-308); VALPROIC ACID 62 ug/mL (50-100)
[2018-02-02] MEDS: MEMANTINE HCL 10 MG TABLET PO SCH (17:22)
[2018-02-02] MEDS: DIVALPROEX 125 MG TABLET.DR PO SCH (17:22)
[2018-02-02] MEDS ORDERED: ERGOCALCIFEROL 50,000 UNIT CAPSULE PO ONE (18:00)
--- NOTE | 2018-02-02 18:00 | NUR ---
PATIENT TRANSFERRED FROM MED SURG TO TELE. SINUS RHYTHM ON TELE MONITOR
--- NOTE | 2018-02-02 18:50 | NUR ---
PATIENT TRYING TO GET OUT OF BED. BED ALARM ON. Addendum: 02/02/18 at 1854 by RODNEY ZAVALETA RN PT CONFUSED, FREQUENT REORIENTATION REQUIRED.
--- NOTE | 2018-02-02 19:30 | NUR ---
RECEIVE DPT AWAKE, ALERT, AND ORIENTEDX1. SITTER AT BEDSIDE. PT CONFUSED. PT HAVE NECK BRACE. PT SHOWS NO SIGNS OF DISTRESS. IV INTACT AND PATENT. SAFETY AND COMFORT PROVIDED. WILL CONTINUE TO MONITOR.
[2018-02-02 20:00] VITALS: BP 165/82
[2018-02-02] MEDS: TAMSULOSIN HCL 0.4 MG CAP.SR.24H PO SCH (20:01)
[2018-02-02] MEDS: TRAZODONE 50 MG TABLET PO SCH (20:01)
[2018-02-02] MEDS: ATORVASTATIN 40 MG TABLET PO SCH (20:02)
[2018-02-02] MEDS: MORPHINE SULFATE 2 MG/1 ML DISP.SYRIN IV PRN (20:17)
[2018-02-02 21:00] VITALS: BP 159/62
[2018-02-02] MEDS ORDERED: DOCUSATE SODIUM 250 MG CAPSULE PO SCH (21:00)
[2018-02-02] MEDS: LORAZEPAM 0.5 MG TABLET PO PRN (22:42)
[2018-02-03] MEDS: MORPHINE SULFATE 2 MG/1 ML DISP.SYRIN IV PRN ×2 (03:44→09:20)
[2018-02-03 04:00] VITALS: BP 147/83
[2018-02-03 06:04] LABS: BASOPHILS % (AUTO) 0.3 % (0.0-2.0); EOSINOPHILS % (AUTO) 0.4 % (0.0-7.0); HEMATOCRIT 37.4 % (36.7-47.1); HEMOGLOBIN 12.5 g/dL (12.5-16.3); LYMPHOCYTES % (AUTO) 11.4 % (20.5-51.5); MEAN CORPUSCULAR HEMOGLOBIN 28.3 uug (23.8-33.4); MEAN CORPUSCULAR HGB CONC 33 g/dL (32.5-36.3); MEAN CORPUSCULAR VOLUME 84.8 fL (73.0-96.2); MONOCYTES # (AUTO) 1.1 K/uL (2.0-10.0); MONOCYTES % (AUTO) 12.4 % (0.0-11.0); NEUTROPHILS # (AUTO) 6.6 K/uL (1.8-8.9); NEUTROPHILS % (AUTO) 75.5 % (38.5-71.5); PLATELET COUNT (AUTO) 223 K/uL (152-348); RED BLOOD CELL COUNT(AUTO) 4.41 MIL/uL (4.06-5.63); WHITE BLOOD COUNT (AUTO) 8.7 K/uL (3.6-10.2)
[2018-02-03] MEDS: PANTOPRAZOLE SODIUM 40 MG TABLET.DR PO SCH (06:11)
--- NOTE | 2018-02-03 06:16 | NUR ---
PT SLEPT INTERMITTENTLY. PT SHOWS NO SIGNS OF DISTRESS. SITTER AT BEDSIDE. PT IV INTACT AND PATENT. PT STABLE. . PRESCRIBED MEDICATION GIVEN AND PT TOLERATED IT WELL. CALL LIGHT WITHIN REACH. SAFETY AND COMFORT PROVIDED. ALL NEEDS ARE MET. WILL ENDORSE ACCORDINGLY TO DAYSHIFT NURSE.
[2018-02-03 06:23] LABS: ALANINE AMINOTRANSFERASE 12 U/L (16-63); ALKALINE PHOSPHATASE 83 U/L (50-136); ASPARTATE AMINOTRANSFERASE 27 U/L (15-37); BILIRUBIN,TOTAL 0.5 mg/dL (0.2-1.0); CARBON DIOXIDE 31 mmol/L (21-32); CHLORIDE 97 mmol/L (98-107); CREATININE 0.8 mg/dL (0.6-1.3); GLUCOSE 112 mg/dL (74-106); MAGNESIUM 1.8 mg/dL (1.8-2.4); PHOSPHOROUS 3.4 mg/dL (2.5-4.9); POTASSIUM 4.1 mmol/L (3.5-5.1); TOTAL PROTEIN, SERUM 8.2 g/dL (6.4-8.2); UREA NITROGEN, BLOOD 12 mg/dL (7-18)
[2018-02-03 06:36] LABS: IRON, SERUM 52 ug/dL (50-175)
--- NOTE | 2018-02-03 07:30 | NUR ---
RECEIVED REPORT FROM DATASTAGE ARCHITECT NURSE, PATIENT IN BED ASLEEP, NO DISTRESS NOTED AT THIS TIME, BED IN LOW POSITION, SIDE RAILS UP X2, BED ALARM ON, AND SITTER AT BEDSIDE FOR SAFETY.
[2018-02-03] MEDS: DIVALPROEX 125 MG TABLET.DR PO SCH ×3 (09:03→17:05)
[2018-02-03] MEDS: FERROUS SULFATE 325 MG TABEC PO SCH (09:03)
[2018-02-03] MEDS: DULOXETINE 30 MG CAPSULE.DR PO SCH (09:03)
[2018-02-03] MEDS: MEMANTINE HCL 10 MG TABLET PO SCH ×2 (09:03→17:05)
[2018-02-03] MEDS: AMLODIPINE 5 MG TABLET PO SCH (09:04)
[2018-02-03 11:42] VITALS: BP 100/61
[2018-02-03] MEDS: LORAZEPAM 0.5 MG TABLET PO PRN (14:24)
[2018-02-03 15:47] VITALS: BP 138/85
--- NOTE | 2018-02-03 19:00 | NUR ---
Patient has been cooperative with care, but frequently restless. Patient complains of pain and is constantly trying to exit bed/chair to find his . visited during the day for about an hour. Patient again became restless. Currently patient is in bed, no distress noted, bed in low position, side rails up x2. Sitter at bedside.
[2018-02-03 19:52] VITALS: BP 92/55
--- NOTE | 2018-02-03 20:00 | NUR ---
RECEIVED PATIENT ASLEEP IN BED. EASILY AROUSABLE. ALERT TO SELF ONLY. NECK BRACE NOTED TO NECK, IN-PLACE. VSS. NO S/S OF PAIN OR DISCOMFORT. NO FACIAL GRIMACE NOTED. NO RESP. DISTRESS NOTED. BED ALARM ON. CALL LIGHT IN REACH. ALL NEEDS ATTENDED. WILL CONTINUE TO MONITOR.
--- NOTE | 2018-02-03 20:30 | NUR ---
PATIENT IS ON TELE SR WITH PVC'S.
[2018-02-03] MEDS: DOCUSATE SODIUM 100 MG CAPSULE PO SCH (20:45)
[2018-02-03] MEDS: ATORVASTATIN 40 MG TABLET PO SCH (20:45)
[2018-02-03] MEDS: TAMSULOSIN HCL 0.4 MG CAP.SR.24H PO SCH (20:45)
[2018-02-03] MEDS: TRAZODONE 50 MG TABLET PO SCH (20:46)
[2018-02-03 23:43] VITALS: BP 104/66
[2018-02-04] MEDS: PANTOPRAZOLE SODIUM 40 MG TABLET.DR PO SCH (06:03)
[2018-02-04 06:10] VITALS: BP 112/76
--- NOTE | 2018-02-04 06:13 | NUR ---
PATIENTS OUTPUT IS ONLY 100cc'S, TEA COLORED. CHECKED PATIENT WITH BLADDER SCANNER AND RECEIVED 0cc'S. CALLED OUT TO DR. SHULTZ RATE INSERTER FOR FURTHER ORDERS.
--- NOTE | 2018-02-04 06:16 | NUR ---
RECEIVED NEW ORDERS FROM DR. SHULTZ. ALL NEEDS ATTENDED.
[2018-02-04] MEDS ORDERED: IV NS 1000 ML 1,000 ML IV PRN (06:30)
[2018-02-04] MEDS ORDERED: IV NORMAL SALINE 500 ML IV ONE (06:30)
--- NOTE | 2018-02-04 06:44 | NUR ---
PATIENT ASLEEP. SITTER AT BEDSIDE. ON TELE SR WITH RARE PVC'S.
--- NOTE | 2018-02-04 07:25 | NUR ---
Received report from night supervisor nurse, patient in bed, asleep no distress noted at this time. Sitter at bedside, no distress noted at this time.
[2018-02-04] MEDS: MEMANTINE HCL 10 MG TABLET PO SCH ×2 (08:28→17:04)
[2018-02-04] MEDS: FERROUS SULFATE 325 MG TABEC PO SCH (08:28)
[2018-02-04] MEDS: AMLODIPINE 5 MG TABLET PO SCH (08:29)
[2018-02-04] MEDS: DULOXETINE 30 MG CAPSULE.DR PO SCH (08:29)
[2018-02-04] MEDS: DIVALPROEX 125 MG TABLET.DR PO SCH ×3 (08:30→17:04)
[2018-02-04 11:17] VITALS: BP 132/70
[2018-02-04 15:33] VITALS: BP 106/60
[2018-02-04 17:11] LABS: BASOPHILS # (AUTO) 0.1 K/uL (0.0-8.0); BASOPHILS % (AUTO) 0.7 % (0.0-2.0); EOSINOPHILS # (AUTO) 0.2 K/uL (0.0-0.7); EOSINOPHILS % (AUTO) 1.8 % (0.0-7.0); HEMATOCRIT 32.3 % (36.7-47.1); LYMPHOCYTES # (AUTO) 1.3 K/uL (20.0-40.0); LYMPHOCYTES % (AUTO) 15.8 % (20.5-51.5); MEAN CORPUSCULAR HEMOGLOBIN 28.6 uug (23.8-33.4); MEAN CORPUSCULAR HGB CONC 34 g/dL (32.5-36.3); MEAN CORPUSCULAR VOLUME 84.5 fL (73.0-96.2); MONOCYTES # (AUTO) 1.4 K/uL (2.0-10.0); NEUTROPHILS # (AUTO) 5.3 K/uL (1.8-8.9); NEUTROPHILS % (AUTO) 64.7 % (38.5-71.5); PLATELET COUNT (AUTO) 190 K/uL (152-348); RED BLOOD CELL COUNT(AUTO) 3.83 MIL/uL (4.06-5.63); WHITE BLOOD COUNT (AUTO) 8.2 K/uL (3.6-10.2)
[2018-02-04 17:18] LABS: CARBON DIOXIDE 30 mmol/L (21-32); CHLORIDE 95 mmol/L (98-107); CREATININE 0.8 mg/dL (0.6-1.3); GLUCOSE 95 mg/dL (74-106); POTASSIUM 3.8 mmol/L (3.5-5.1); UREA NITROGEN, BLOOD 19 mg/dL (7-18)
[2018-02-04 17:23] LABS: ALANINE AMINOTRANSFERASE 9 U/L (16-63); ALKALINE PHOSPHATASE 71 U/L (50-136); ASPARTATE AMINOTRANSFERASE 18 U/L (15-37); BILIRUBIN,TOTAL 0.4 mg/dL (0.2-1.0); MAGNESIUM 1.7 mg/dL (1.8-2.4); PHOSPHOROUS 3.6 mg/dL (2.5-4.9); TOTAL PROTEIN, SERUM 6.8 g/dL (6.4-8.2)
--- NOTE | 2018-02-04 18:00 | NUR ---
Patient has been cooperative with care, no distress noted throughout shift. Currently patient in bed awake, bed in low position, side rails up x2, sitter at bedside. Dickinson draining tea colored urine. notified of low urine output today, and labs were ordered by . stopped fluids.
[2018-02-04 18:32] LABS: BAND % (MANUAL) 3 % (0-10); EOSINOPHILS % (MANUAL) 1 % (0-8); LYMPHOCYTES % (MANUAL) 17 % (20-40); MONOCYTES % (MANUAL) 18 % (2-10); NEUTROPHILS % (MANUAL) 61 % (42-75)
[2018-02-04] MEDS: TAMSULOSIN HCL 0.4 MG CAP.SR.24H PO SCH (20:22)
[2018-02-04] MEDS: DOCUSATE SODIUM 100 MG CAPSULE PO SCH (20:22)
[2018-02-04] MEDS: ATORVASTATIN 40 MG TABLET PO SCH (20:22)
[2018-02-04] MEDS: TRAZODONE 50 MG TABLET PO SCH (20:22)
--- NOTE | 2018-02-04 22:00 | NUR ---
Nursing Note: All due medications administered with no adverse reaction.Cervical collar in place. Pt repeatedly trying to get out of bed. No complaints of pain at this time. Respirations even and unlabored on room air. Pt requiring 1:1 sitter at all times for safety. Patient has poor safety awareness and poor impulse control. Bed in low and locked position. Call light in reach. Frequent visual checks. Will continue to monitor.
[2018-02-04] MEDS: MORPHINE SULFATE 2 MG/1 ML DISP.SYRIN IV PRN (22:11)
[2018-02-05] MEDS: PANTOPRAZOLE SODIUM 40 MG TABLET.DR PO SCH (06:07)
--- NOTE | 2018-02-05 06:27 | NUR ---
Nursing Note: Pt resting in bed. Cervical collar in place. Pt continually attempting to remove collar. Redirected as needed. No complaints of pain at this time. Respirations even and unlabored on room air. Pt requiring 1:1 sitter at all times for safety. Patient has poor safety awareness and poor impulse control. Bed in low and locked position. Call light in reach. Frequent visual checks. Will continue to monitor.
[2018-02-05 07:39] VITALS: BP 127/74
[2018-02-05] MEDS: FERROUS SULFATE 325 MG TABEC PO SCH (09:40)
[2018-02-05] MEDS: DULOXETINE 30 MG CAPSULE.DR PO SCH (09:40)
[2018-02-05] MEDS: MEMANTINE HCL 10 MG TABLET PO SCH (09:40)
[2018-02-05] MEDS: DIVALPROEX 125 MG TABLET.DR PO SCH ×2 (09:40→13:28)
[2018-02-05] MEDS: AMLODIPINE 5 MG TABLET PO SCH (09:41)
[2018-02-05 11:41] VITALS: BP 130/76
[2018-02-05] MEDS: MORPHINE SULFATE 2 MG/1 ML DISP.SYRIN IV PRN (12:38)
--- NOTE | 2018-02-05 15:50 | NUR ---
IV D/C, REPORT CALLED IN TO [facility], PATIENT STABLE, DISCHARGED TO [facility].
[2018-02-05] MEDS ORDERED: DIVALPROEX 250 MG TABLET.DR PO SCH (17:00)
[2018-02-05] MEDS ORDERED: MEMANTINE HCL 5 MG TABLET PO SCH (21:00)
== END 2018-02-05 16:00 | disposition home health service (06) | DRG 551 ==
LOC: ER 09:34 → MED 14:03 → TELE 21:19 → MED 02-04 16:20
PROVIDERS: ADMIT Internal Medicine; ATTEND Internal Medicine
DX: M50.321 Other cervical disc degeneration at C4-C5 level (principal); G93.49 Other encephalopathy; I21.A1 Myocardial infarction type 2; E43 Unspecified severe protein-calorie malnutrition; I50.32 Chronic diastolic (congestive) heart failure; F05 Delirium due to known physiological condition; M48.02 Spinal stenosis, cervical region; I25.10 Atherosclerotic heart disease of native coronary artery without angina pectoris; I11.0 Hypertensive heart disease with heart failure; Z95.1 Presence of aortocoronary bypass graft; Z74.09 Other reduced mobility; F03.90 Unspecified dementia, unspecified severity, without behavioral disturbance, psychotic disturbance, mood disturbance, and anxiety; I25.5 Ischemic cardiomyopathy; G62.9 Polyneuropathy, unspecified; E87.6 Hypokalemia; E78.5 Hyperlipidemia, unspecified; Z79.899 Other long term (current) drug therapy; I25.2 Old myocardial infarction; Z68.21 Body mass index [BMI] 21.0-21.9, adult; D50.9 Iron deficiency anemia, unspecified; M19.90 Unspecified osteoarthritis, unspecified site; K21.9 Gastro-esophageal reflux disease without esophagitis; N40.1 Benign prostatic hyperplasia with lower urinary tract symptoms; R33.8 Other retention of urine; W19.XXXA Unspecified fall, initial encounter; Z91.81 History of falling; Y93.9 Activity, unspecified; Y92.098 Other place in other non-institutional residence as the place of occurrence of the external cause; K64.9 Unspecified hemorrhoids
CPT/HCPCS: 36415; 70030-TC; 70450; 71045; 72125; 80164; 83550; 83735; 84100; 84153; 85025; 85730; 93005; A4663; A9150; J1630; J2060; J2270; J7030; J7040

== ENCOUNTER 2018-04-14 15:13 | Inpatient (IN) | payer MEDICARE, OTHER ==
[~2018-04-14] VITALS: Ht 167.6 cm; Wt 68.0 kg
[~2018-04-14 15:13] MED LIST changes: +ALPR0.5T8 PO; -AMLO5TAB2 PO; +AMLO5TAB7 PO; -SUCR1TAB PO
[2018-04-14] MEDS ORDERED: IV NORMAL SALINE 500 ML BAG IV ONE (15:30)
[2018-04-14 15:38] LABS: BASOPHILS % (AUTO) 0.4 % (0.0-2.0); EOSINOPHILS % (AUTO) 0.3 % (0.0-7.0); HEMATOCRIT 29.1 % (36.7-47.1); HEMOGLOBIN 9.8 g/dL (12.5-16.3); LYMPHOCYTES # (AUTO) 1.2 K/uL (20.0-40.0); LYMPHOCYTES % (AUTO) 11.3 % (20.5-51.5); MEAN CORPUSCULAR HEMOGLOBIN 30.8 uug (23.8-33.4); MEAN CORPUSCULAR HGB CONC 34 g/dL (32.5-36.3); MEAN CORPUSCULAR VOLUME 91.2 fL (73.0-96.2); MONOCYTES # (AUTO) 1.1 K/uL (2.0-10.0); MONOCYTES % (AUTO) 10.7 % (0.0-11.0); NEUTROPHILS # (AUTO) 8.3 K/uL (1.8-8.9); NEUTROPHILS % (AUTO) 77.3 % (38.5-71.5); PLATELET COUNT (AUTO) 194 K/uL (152-348); RED BLOOD CELL COUNT(AUTO) 3.19 MIL/uL (4.06-5.63); WHITE BLOOD COUNT (AUTO) 10.7 K/uL (3.6-10.2)
[2018-04-14 15:39] LABS: *BILIRUBIN,URIN 1+ (NEGATIVE); *BLOOD, URINE 2+ (NEGATIVE); *KETONES,URINE 1+ (NEGATIVE); *PROTEIN,URINE 2+ (NEGATIVE); LEUKOCYTE ESTERASE ,URINE 3+ (NEGATIVE); NITRITE, URINE POSITIVE (NEGATIVE); UGLUCOSE NEGATIVE (NEGATIVE)
[2018-04-14] MEDS ORDERED: DULO60CA45 PO (15:49)
[2018-04-14] MEDS ORDERED: NEOMY/BACITRA/POLYMYXIN B OINT UD PACKET TP ONE ×2 (15:54→16:00)
[2018-04-14] MEDS ORDERED: TDAP DIPH,PERTUSS,TET VAC/PF 0.5 ML DISP.SYRIN IM ONE ×2 (15:54→16:00)
[2018-04-14 15:55] LABS: *COLOR,URINE DARK YELLOW (YELLOW)
[2018-04-14 15:58] LABS: *CLARITY,URINE CLOUDY (CLEAR)
[2018-04-14 16:01] LABS: BACTERIA,URINE MODERATE /HPF (NONE SEEN); WBC,URINE 80-100 /HPF (0-3)
[2018-04-14 16:02] LABS: MUCUS,URINE MANY /LPF (0-FEW); SQUAMOUS EPITHELIAL CELL,UR FEW /HPF (NONE SEEN); YEAST,URINE MODERATE /HPF (NONE SEEN)
[2018-04-14] MEDS ORDERED: LEVOFLOXACIN 750MG/D5W 150 ML IV ONE (16:07)
[2018-04-14 16:08] LABS: ALANINE AMINOTRANSFERASE 7 U/L (16-63); ALKALINE PHOSPHATASE 137 U/L (50-136); ASPARTATE AMINOTRANSFERASE 9 U/L (15-37); BILIRUBIN,DIRECT 0.1 mg/dL (0.0-0.2); BILIRUBIN,TOTAL 0.3 mg/dL (0.2-1.0); CARBON DIOXIDE 27 mmol/L (21-32); CHLORIDE 103 mmol/L (98-107); CREATININE 0.8 mg/dL (0.6-1.3); GLUCOSE 101 mg/dL (74-106); POTASSIUM 4.2 mmol/L (3.5-5.1); TOTAL PROTEIN, SERUM 6.1 g/dL (6.4-8.2); UREA NITROGEN, BLOOD 19 mg/dL (7-18)
[2018-04-14] MEDS ORDERED: LEVOFLOXACIN 750 MG/D5W 150 ML PIGGYBACK IV ONE (16:15)
--- NOTE | 2018-04-14 16:31 | NUR ---
pt transferred to floor in stable condition.
[2018-04-14 16:42] VITALS: BP 105/61
--- NOTE | 2018-04-14 19:20 | NUR ---
RECEIVED PATIENT LYING IN BED. AAOX1, MAINLY CONFUSED AND DISORIENTED. HYPERVERBAL. 1;1 SITTER AT BEDSIDE. IN NO ACUTE DISTRESS. IV SITE ON RIGHT WRIST INTACT AND PATENT. NSR IN TELE AT 78/MIN. VS WNL. O2 SAT AT 98%. SAFETY MEASURE INITIATED AND CALL MONTEMAYOR WITHIN REACH.
[2018-04-14 20:00] VITALS: BP 131/74
--- NOTE | 2018-04-14 20:30 | NUR ---
PATIENT SON FRANCA CALLED AND UPDATED ON PATIENT CURRENT CONDITION. PER FRANCA PATEINT IS TO ONLY BE TREATED MEDICALLY AND NOT PSYCHIATRICALLY WHILE AT THE HOSPITAL AND FOR PATIENT TO BE DISCHARGE TO [facility] ONCE MEDICALLY CLEAR. INFORMED FRANCA THAT WE WILL NOTIFY TOMORROW AM.
[2018-04-14] MEDS ORDERED: ONDANSETRON 4 MG/2 ML VIAL IV PRN (21:00)
[2018-04-14] MEDS ORDERED: ACETAMINOPHEN 650 MG SUPP.RECT RC PRN (21:00)
[2018-04-14] MEDS: IV D5/ 0.9% NACL 1,000 ML IV PRN (21:05)
[2018-04-14] MEDS: CEFTRIAXONE 1 G in IV DEXTROSE 5% 50 ML IV SCH (21:06)
[2018-04-14] MEDS: LORAZEPAM 2 MG/1 ML VIAL IV PRN (21:17)
[2018-04-14] MEDS: FLUCONAZOLE 200 MG/NS 100ML IV 100 MG in PREMIXED 1 EACH IV SCH (21:46)
[2018-04-14 23:52] VITALS: BP 132/68
[2018-04-15 04:00] VITALS: BP 137/72
--- NOTE | 2018-04-15 06:24 | NUR ---
AAOX1, MAINLY CONFUSED AND DISORIENTED. 1:1 SITTER AT BEDSIDE. IN NO ACUTE DISTRESS. IV SITE ON RIGHT WRIST REMAINS INTACT AND PATENT. IVF INFUSING. NSR IN TELE AT 78/MIN. VS WNL. NO ADVERSE REACTION FROM IV ABX AND IV ANTIFUNGAL. SAFETY MEASURE MAINTAINED AND CALL MONTEMAYOR WITHIN REACH.
[2018-04-15] MEDS: PANTOPRAZOLE SODIUM 40 MG VIAL IV SCH (06:33)
[2018-04-15 06:47] LABS: BASOPHILS % (AUTO) 0.4 % (0.0-2.0); EOSINOPHILS # (AUTO) 0.1 K/uL (0.0-0.7); EOSINOPHILS % (AUTO) 1.2 % (0.0-7.0); HEMATOCRIT 30.2 % (36.7-47.1); HEMOGLOBIN 10.2 g/dL (12.5-16.3); LYMPHOCYTES # (AUTO) 1.3 K/uL (20.0-40.0); LYMPHOCYTES % (AUTO) 20.2 % (20.5-51.5); MEAN CORPUSCULAR HEMOGLOBIN 30.9 uug (23.8-33.4); MEAN CORPUSCULAR HGB CONC 34 g/dL (32.5-36.3); MEAN CORPUSCULAR VOLUME 91.3 fL (73.0-96.2); MONOCYTES # (AUTO) 0.9 K/uL (2.0-10.0); MONOCYTES % (AUTO) 14.2 % (0.0-11.0); NEUTROPHILS # (AUTO) 4.1 K/uL (1.8-8.9); PLATELET COUNT (AUTO) 196 K/uL (152-348); RED BLOOD CELL COUNT(AUTO) 3.31 MIL/uL (4.06-5.63); WHITE BLOOD COUNT (AUTO) 6.3 K/uL (3.6-10.2)
[2018-04-15] MEDS ORDERED: PANTOPRAZOLE SODIUM 40 MG TABLET.DR PO SCH (07:00)
[2018-04-15 07:01] LABS: IRON, SERUM 47 ug/dL (50-175)
--- NOTE | 2018-04-15 07:09 | NUR ---
PATIENT RESTING COMFORTABLY IN BED. NO SIGNS OF DISTRESS. 1:1 SITTER AT BEDSIDE FOR SAFETY. REORIENTATION WILL BE PROVIDED. SAFETY MEASURES IMPLEMENTED. FALL PRECAUTIONS IMPLEMENTED. BED ALARM ON. WILL CONTINUE TO MONITOR.
[2018-04-15 07:31] LABS: ALANINE AMINOTRANSFERASE 11 U/L (16-63); ALKALINE PHOSPHATASE 137 U/L (50-136); ASPARTATE AMINOTRANSFERASE 17 U/L (15-37); BILIRUBIN,TOTAL 0.3 mg/dL (0.2-1.0); CARBON DIOXIDE 31 mmol/L (21-32); CHLORIDE 101 mmol/L (98-107); CHOLESTEROL 143 mg/dL (<200); CREATININE 0.7 mg/dL (0.6-1.3); GLUCOSE 87 mg/dL (74-106); HDL CHOLESTEROL 52 mg/dL (40-60); MAGNESIUM 1.7 mg/dL (1.8-2.4); PHOSPHOROUS 3.3 mg/dL (2.5-4.9); TOTAL PROTEIN, SERUM 6.4 g/dL (6.4-8.2); TRIGLYCERIDES 41 MG/DL (30-150); UREA NITROGEN, BLOOD 16 mg/dL (7-18)
[2018-04-15 11:10] VITALS: BP 133/75
[2018-04-15] MEDS ORDERED: MAGNESIUM SULFATE/D5W 100 ML IV SCH (11:15)
--- NOTE | 2018-04-15 12:27 | NUR ---
WOUND CARE CONSULT: PT PRESENTS WITH DRY ABRASION NEAR RT EYE. NO DRAINAGE NOTED. DEFER TO MD. PT BECOMES AGITATED WHEN TOUCHED. NOT TURNED AT THIS TIME FOR FULL SKIN ASSESSMENT. PER NURSING DOCUMENTATION, LEFT DORSAL FOOT DRY SCAB NOTED AND SACRAL SCAR NOTED. RECOMMENDATIONS MADE FOR SKIN PROTECTION AND CARE BASED ON NURSING DOCUMENTATION AND PHOTOS. DISCUSSED WITH NURSING STAFF. WILL SEE PRN. MD IN AGREEMENT WITH PLAN OF CARE.
[2018-04-15] MEDS: LORAZEPAM 2 MG/1 ML VIAL IV PRN ×2 (13:26→21:27)
[2018-04-15] MEDS: AMLODIPINE 5 MG TABLET PO SCH (13:26)
--- NOTE | 2018-04-15 13:30 | NUR ---
ATIVAN 0.5 MG IV ADMINISTERED. PATIENT AGITATED, ATTEMPTED TO PULL IV-ACCESS OUT AND LEBRON CATHETER OUT. REORIENTATION ATTEMPTED. PATIENT CONTINUED TO BE AGITATED.
[2018-04-15] MEDS: IV D5/ 0.9% NACL 1,000 ML IV PRN (14:30)
[2018-04-15 16:02] VITALS: BP 134/75
--- NOTE | 2018-04-15 18:34 | NUR ---
PATIENT RESTING COMFORTABLY IN BED, NO SIGNS OF DISTRESS. NO SIGNS OF AGITATION AT THIS TIME. 1:1 SITTER AT BEDSIDE FOR SAFETY. PATIENT HAS CALMED DOWN AND GETTING MUCH NEEDED REST. HAS BEEN RESTLESS FOR MOST OF THE DAY SHIFT BUT NOW RESTING COMFORTABLY. SAFETY MEASURES IMPLEMENTED. IVF RUNNING. BED IN LOCKED/LOW POSITION, SIDE RAILS UP X3. BED ALARM ON.
[2018-04-15 19:15] VITALS: BP 122/63
--- NOTE | 2018-04-15 19:20 | NUR ---
RECEIVED PATIENT LYING IN BED. ASLEEP, APPEARS COMFORTABLE IN BED. 1;1 SITTER AT BEDSIDE. IN NO ACUTE DISTRESS. IV SITE ON RIGHT WRIST INTACT AND PATENT. NSR IN TELE AT 88MIN. VS WNL. LEBRON CATHETER INTACT AND PATENT AND DRAINING VIA GRAVITY. SAFETY MEASURE INITIATED AND CALL MONTEMAYOR WITHIN REACH.
[2018-04-15] MEDS: CEFTRIAXONE 1 G in IV DEXTROSE 5% 50 ML IV SCH (20:15)
[2018-04-15] MEDS: FLUCONAZOLE 200 MG/NS 100ML IV 100 MG in PREMIXED 1 EACH IV SCH (21:30)
--- NOTE | 2018-04-15 23:40 | NUR ---
PATIENT NOTED WITH 3 CONSECUTIVE LOOSE BM. STOOL FOR C. DIFF TEST SOC. SPECIMEN COLLECTED AND SNED TO LAB.
[2018-04-15 23:52] VITALS: BP 126/71
[2018-04-16 04:00] VITALS: BP 122/69
[2018-04-16 06:16] LABS: BASOPHILS % (AUTO) 0.7 % (0.0-2.0); EOSINOPHILS # (AUTO) 0.1 K/uL (0.0-0.7); EOSINOPHILS % (AUTO) 2.2 % (0.0-7.0); HEMATOCRIT 27.6 % (36.7-47.1); HEMOGLOBIN 9.5 g/dL (12.5-16.3); LYMPHOCYTES # (AUTO) 1.7 K/uL (20.0-40.0); LYMPHOCYTES % (AUTO) 27.6 % (20.5-51.5); MEAN CORPUSCULAR HEMOGLOBIN 31.1 uug (23.8-33.4); MEAN CORPUSCULAR HGB CONC 34 g/dL (32.5-36.3); MEAN CORPUSCULAR VOLUME 90.6 fL (73.0-96.2); MONOCYTES # (AUTO) 0.9 K/uL (2.0-10.0); MONOCYTES % (AUTO) 14.4 % (0.0-11.0); NEUTROPHILS # (AUTO) 3.4 K/uL (1.8-8.9); NEUTROPHILS % (AUTO) 55.1 % (38.5-71.5); PLATELET COUNT (AUTO) 190 K/uL (152-348); RED BLOOD CELL COUNT(AUTO) 3.05 MIL/uL (4.06-5.63); WHITE BLOOD COUNT (AUTO) 6.2 K/uL (3.6-10.2)
--- NOTE | 2018-04-16 06:18 | NUR ---
AAOX1, MAINLY CONFUSED AND DISORIENTED. 1:1 SITTER AT BEDSIDE. IN NO ACUTE DISTRESS. IV SITE ON RIGHT WRIST REMAINS INTACT AND PATENT. IVF INFUSING. NSR IN TELE AT 76/MIN. NO ADVERSE REACTION FROM IV ABX. NO FURTHER LBM NOTED. ISOLATION PRECAUTION OBSERVES. NEEDS ASSESSED AND ATTENDED TO. SAFETY MEASURE MAINTAINED AND CALL MONTEMAYOR WITHIN REACH. Addendum: 04/16/18 at 0621 by CHRISTIAN ELAINE RN LEBRON CATHETER REMAINS INTACT AND DRAINING VIA GRAVITY.
[2018-04-16] MEDS: PANTOPRAZOLE SODIUM 40 MG VIAL IV SCH (06:33)
[2018-04-16 07:33] LABS: CARBON DIOXIDE 26 mmol/L (21-32); CHLORIDE 101 mmol/L (98-107); CREATININE 0.7 mg/dL (0.6-1.3); GLUCOSE 90 mg/dL (74-106); MAGNESIUM 1.8 mg/dL (1.8-2.4); PHOSPHOROUS 3.8 mg/dL (2.5-4.9); POTASSIUM 3.8 mmol/L (3.5-5.1); UREA NITROGEN, BLOOD 10 mg/dL (7-18)
[2018-04-16] MEDS: AMLODIPINE 5 MG TABLET PO SCH (09:43)
[2018-04-16] MEDS: ASPIRIN EC 81 MG TABLET.DR PO SCH (09:43)
[2018-04-16 10:18] VITALS: BP 130/69
[2018-04-16 13:00] VITALS: BP 166/91
[2018-04-16] MEDS: LORAZEPAM 2 MG/1 ML VIAL IV PRN (14:45)
--- NOTE | 2018-04-16 14:50 | NUR ---
Patient getting increasingly anxious, family was at bedside and left, patient pulling at escalante catheter and trying to get out of bed, after several attempts patent is not re-directable at this time, ativan given, will continue to monitor
[2018-04-16 16:34] VITALS: BP 122/64
[2018-04-16] MEDS ORDERED: FUROSEMIDE 20 MG/2 ML VIAL IV ONE (17:00)
[2018-04-16] MEDS ORDERED: LEVOFLOXACIN 500 MG TABLET PO SCH (20:00)
--- NOTE | 2018-04-16 20:00 | NUR ---
Received pt with elevated bp of 169/103 with HR at 109, pt noted to be restless, anxious and c/o generalized pain. Pain management as ordered. 1:1 sitter at bedside for safety. Frequent redirection and reorientation. Safe environment implemented. Call light within reach.
[2018-04-16] MEDS: MORPHINE SULFATE 4 MG/1 ML DISP.SYRIN IV PRN (20:12)
[2018-04-16 20:33] VITALS: BP 169/103
[2018-04-16 20:55] VITALS: BP 106/70
[2018-04-17] MEDS: LORAZEPAM 2 MG/1 ML VIAL IV PRN ×2 (01:06→11:00)
[2018-04-17 06:17] VITALS: BP 112/63
[2018-04-17] MEDS: PANTOPRAZOLE SODIUM 40 MG VIAL IV SCH (06:42)
--- NOTE | 2018-04-17 06:55 | NUR ---
Pt slept intermittently throughout shift, kept clean and dry. Pt still having loose bowel movements at this time. All needs attended to. No s/s of acute distress. 1:1 sitter at bedside for safety. Frequent reorientation and redirection. Safe environment implemented at all times.
[2018-04-17 07:30] VITALS: BP 166/108
[2018-04-17] MEDS: ASPIRIN EC 81 MG TABLET.DR PO SCH (07:46)
[2018-04-17] MEDS: AMLODIPINE 5 MG TABLET PO SCH (07:47)
[2018-04-17] MEDS: MORPHINE SULFATE 4 MG/1 ML DISP.SYRIN IV PRN (07:51)
--- NOTE | 2018-04-17 08:00 | NUR ---
AWAKE ALERT AND CONFUSED X3 CONTINUE WITH 1:1 SITTER FOR SAFETY NO SIGNS OF PAIN OR DISTRESS. DC PLANNING TODAY
--- NOTE | 2018-04-17 10:00 | NUR ---
PATIENT WITH ON AND OFF ANXIETY AND TRYING TO GET OUT OF BED PRN MEDS GIVEN WITH TEMPORAR. Y RELIEF
[2018-04-17 11:35] VITALS: BP 116/65
--- NOTE | 2018-04-17 12:00 | NUR ---
SEEN BY DR MCKEON SPOKED WITH AND AGREED TO GO BACK TO [facility]
[2018-04-17] MEDS ORDERED: ASPI-618 PO (12:23)
[2018-04-17] MEDS ORDERED: ATOR10TA PO (12:23)
[2018-04-17] MEDS ORDERED: PANT40TA2 PO (12:23)
[2018-04-17] MEDS ORDERED: DULO60CA45 PO (12:23)
[2018-04-17] MEDS ORDERED: LEVO500T2 PO (12:28)
--- NOTE | 2018-04-17 15:56 | NUR ---
DISCHARGED TO [facility] VIA PRIVATE TRANSPORTATION ACCOMPANIED BY STAFF. REPORT GIVEN TO LUCY
[2018-04-18] MEDS ORDERED: PANTOPRAZOLE SODIUM 40 MG TABLET.DR PO SCH (07:00)
== END 2018-04-17 15:55 | DRG 871 ==
LOC: ER 15:16 → TELE 16:23 → MED 04-16 20:50
PROVIDERS: ADMIT Internal Medicine; ATTEND Internal Medicine
DX: A41.59 Other Gram-negative sepsis (principal); G93.41 Metabolic encephalopathy; E43 Unspecified severe protein-calorie malnutrition; I50.43 Acute on chronic combined systolic (congestive) and diastolic (congestive) heart failure; N39.0 Urinary tract infection, site not specified; I67.82 Cerebral ischemia; R65.20 Severe sepsis without septic shock; I95.9 Hypotension, unspecified; I25.10 Atherosclerotic heart disease of native coronary artery without angina pectoris; Z95.1 Presence of aortocoronary bypass graft; I25.2 Old myocardial infarction; E78.5 Hyperlipidemia, unspecified; G62.9 Polyneuropathy, unspecified; K21.9 Gastro-esophageal reflux disease without esophagitis; Z68.24 Body mass index [BMI] 24.0-24.9, adult; G89.29 Other chronic pain; S09.90XA Unspecified injury of head, initial encounter; W18.39XA Other fall on same level, initial encounter; Y92.099 Unspecified place in other non-institutional residence as the place of occurrence of the external cause; I11.0 Hypertensive heart disease with heart failure; K64.9 Unspecified hemorrhoids; N40.1 Benign prostatic hyperplasia with lower urinary tract symptoms; R33.8 Other retention of urine; R97.20 Elevated prostate specific antigen [PSA]; M50.10 Cervical disc disorder with radiculopathy, unspecified cervical region; I25.5 Ischemic cardiomyopathy; B96.89 Other specified bacterial agents as the cause of diseases classified elsewhere; Z91.81 History of falling; F03.90 Unspecified dementia, unspecified severity, without behavioral disturbance, psychotic disturbance, mood disturbance, and anxiety; F06.8 Other specified mental disorders due to known physiological condition; M19.90 Unspecified osteoarthritis, unspecified site; D50.0 Iron deficiency anemia secondary to blood loss (chronic); R55 Syncope and collapse; Z79.899 Other long term (current) drug therapy
CPT/HCPCS: 36415; 70030-TC; 70450; 71045; 80164; 83550; 83605; 83735; 84100; 84443; 85025; 85730; 87040; 87077; 87086; 90715; 93005; 95819; A4663; C9113; G0378; J0696; J1450; J1940; J1956; J2060; J2270; J2405; J3475; J7042; J7060

== ENCOUNTER 2018-06-19 22:15 | Emergency (ER) | payer MEDICARE, OTHER ==
[~2018-06-19] VITALS: Ht 170.2 cm; Wt 65.8 kg
[~2018-06-19 22:15] MED LIST changes: -ABH CREAM TP; +ACET325T53 PO; +ALPR0.255 PO; -ALPR0.5T8 PO; -AMLO5TAB7 PO; +ASPI-605 PO; +ATOR10TA PO; -ATOR40TA PO; -CALC300T4 PO; -CARB1DRO OP; -CHOL200078 PO; +DICL100G16 TP; -DICLOFENAC 1% TP; +DIVA-78 PO; -DIVA125T2 PO; +DOCU100C36 PO; -DULO30CA2 PO; -ENSURE PO; -FERR325T28 PO; +FLUC100T PO; +HYDR-3326 PO; -LIDOCAINE TD; +LINE600I IV; -MEMA10TA PO; +MENT71OI TOP; -RANI150C4 PO; +SODI100037 PO; -TRAM50TA2 PO
--- NOTE | 2018-06-19 22:19 | NUR ---
Dr. Mayfield at bedside for MSE.
--- NOTE | 2018-06-19 22:47 | NUR ---
Called [facility] for transportation back to [facility], spoke with Bhargavi, given ETA [id number], Trip#[id number]
[2018-06-19] MEDS ORDERED: LORAZEPAM 0.5 MG TABLET PO ONE (23:00)
[2018-06-19] MEDS ORDERED: LORAZEPAM 1 MG TABLET ONE (23:04)
[2018-06-19] MEDS ORDERED: ACETAMINOPHEN ES 500 MG TABLET ONE (23:32)
[2018-06-19] MEDS ORDERED: ACETAMINOPHEN 325 MG TABLET PO ONE (23:45)
--- NOTE | 2018-06-20 00:49 | NUR ---
[facility] arrived to ER to transport patient back to [facility]. Report provided to EMT.
--- NOTE | 2018-06-20 01:01 | NUR ---
Pt out of ER via [facility], to be transported back to [facility], report and documentation with EMT, accompanied by son.
[2018-06-20 01:03] VITALS: BP 113/70
[2018-06-20] MEDS ORDERED: PANT40TA2 PO (17:35)
[2018-06-20] MEDS ORDERED: SODI1TAB3 PO (17:35)
[2018-06-20] MEDS ORDERED: TAMS0.4C34 PO (17:35)
[2018-06-20] MEDS ORDERED: ACET325T53 PO (17:35)
[2018-06-20] MEDS ORDERED: ALPR0.255 PO (17:35)
[2018-06-20] MEDS ORDERED: SENN-168 PO (17:35)
[2018-06-20] MEDS ORDERED: TRAZ-182 PO (17:35)
[2018-06-20] MEDS ORDERED: HYDR-4209 PO (17:35)
[2018-06-20] MEDS ORDERED: FERR325T24 PO (17:35)
[2018-06-20] MEDS ORDERED: ABH CREAM TP ×2 (17:35)
== END 2018-06-20 01:03 | disposition home or self-care (01) ==
LOC: ER 22:16
DX: M25.551 Pain in right hip (principal); I10 Essential (primary) hypertension; K21.9 Gastro-esophageal reflux disease without esophagitis; Z79.891 Long term (current) use of opiate analgesic; Z79.899 Other long term (current) drug therapy; Z79.82 Long term (current) use of aspirin
CPT/HCPCS: 72170; A4663; A9150

== ENCOUNTER 2018-06-20 17:00 | Inpatient (IN) | payer MEDICARE, OTHER ==
[~2018-06-20] VITALS: Ht 170.2 cm; Wt 60.4 kg
--- NOTE | 2018-06-20 17:21 | NUR ---
PT IS IN ROOM #2B. DR BECKHAM EVALUATED THE PT.
[2018-06-20] MEDS ORDERED: HYDR-4209 PO (17:35)
[2018-06-20] MEDS ORDERED: ALPR0.255 PO (17:35)
[2018-06-20] MEDS ORDERED: ABH CREAM TP ×2 (17:35)
[2018-06-20] MEDS ORDERED: ACET325T53 PO (17:35)
[2018-06-20] MEDS ORDERED: FERR325T24 PO (17:35)
[2018-06-20] MEDS ORDERED: SENN-168 PO (17:35)
[2018-06-20] MEDS ORDERED: TAMS0.4C34 PO (17:35)
[2018-06-20] MEDS ORDERED: SODI1TAB3 PO (17:35)
[2018-06-20] MEDS ORDERED: PANT40TA2 PO (17:35)
[2018-06-20] MEDS ORDERED: TRAZ-182 PO (17:35)
[2018-06-20 17:44] LABS: CARBON DIOXIDE 25 mmol/L (21-32); CHLORIDE 98 mmol/L (98-107); CREATININE 0.9 mg/dL (0.6-1.3); GLUCOSE 132 mg/dL (74-106); UREA NITROGEN, BLOOD 27 mg/dL (7-18)
[2018-06-20 17:50] LABS: ALANINE AMINOTRANSFERASE 17 U/L (16-63); ALKALINE PHOSPHATASE 120 U/L (50-136); ASPARTATE AMINOTRANSFERASE 34 U/L (15-37); BILIRUBIN,DIRECT 0.2 mg/dL (0.0-0.2); BILIRUBIN,TOTAL 0.9 mg/dL (0.2-1.0); TOTAL PROTEIN, SERUM 7.8 g/dL (6.4-8.2)
[2018-06-20 17:51] LABS: BASOPHILS # (AUTO) 0.1 K/uL (0.0-8.0); BASOPHILS % (AUTO) 0.4 % (0.0-2.0); HEMATOCRIT 28.1 % (36.7-47.1); HEMOGLOBIN 9.4 g/dL (12.5-16.3); LYMPHOCYTES # (AUTO) 0.6 K/uL (20.0-40.0); LYMPHOCYTES % (AUTO) 4.5 % (20.5-51.5); MEAN CORPUSCULAR HEMOGLOBIN 28.3 uug (23.8-33.4); MEAN CORPUSCULAR HGB CONC 33 g/dL (32.5-36.3); MEAN CORPUSCULAR VOLUME 84.6 fL (73.0-96.2); MONOCYTES # (AUTO) 1.4 K/uL (2.0-10.0); MONOCYTES % (AUTO) 9.7 % (0.0-11.0); NEUTROPHILS # (AUTO) 11.9 K/uL (1.8-8.9); NEUTROPHILS % (AUTO) 85.4 % (38.5-71.5); PLATELET COUNT (AUTO) 374 K/uL (152-348); RED BLOOD CELL COUNT(AUTO) 3.32 MIL/uL (4.06-5.63)
[2018-06-20] MEDS ORDERED: PIPERACILLIN SODIUM/TAZOBACTAM 3.375 G in IV DEXTROSE 5% 50 ML IV ONE (18:15)
[2018-06-20] MEDS ORDERED: PIPERACILLIN/TAZOBACTAM/D5W 50 ML IV ONE (18:18)
[2018-06-20 18:21] LABS: *BILIRUBIN,URIN NEGATIVE (NEGATIVE); *BLOOD, URINE 3+ (NEGATIVE); *CLARITY,URINE CLOUDY (CLEAR); *COLOR,URINE YELLOW (YELLOW); *KETONES,URINE TRACE (NEGATIVE); *UROBILINOGEN,URINE 0.2 E.U./dl (NORMAL); LEUKOCYTE ESTERASE ,URINE 3+ (NEGATIVE); NITRITE, URINE NEGATIVE (NEGATIVE); PH,URINE 7.5 (5.0-8.0); UGLUCOSE NEGATIVE (NEGATIVE)
[2018-06-20 18:35] LABS: BACTERIA,URINE MA /HPF (NONE SEEN); RBC,URINE 20-50 /HPF (0-3); SQUAMOUS EPITHELIAL CELL,UR FEW /HPF (NONE SEEN); WBC,URINE 20-50 /HPF (0-3)
[2018-06-20 19:00] VITALS: BP 118/55
--- NOTE | 2018-06-20 19:00 | NUR ---
Dr. Fernandez on panel call with Dr. Lucia
--- NOTE | 2018-06-20 19:11 | NUR ---
REPORT GIVEN TO ELY YATES.
--- NOTE | 2018-06-20 19:30 | NUR ---
Report given to Sally GRAVES Medsurg.
[2018-06-20] MEDS ORDERED: ONDANSETRON 4 MG/2 ML VIAL IV PRN (19:45)
[2018-06-20] MEDS ORDERED: ZOLPIDEM 5 MG TABLET PO PRN (19:45)
[2018-06-20] MEDS ORDERED: Z GUARD REMEDY PASTE 57 GM TUBE TOP PRN (19:45)
[2018-06-20] MEDS ORDERED: PIPERACILLIN/TAZOBACTAM/D5W 50 ML IV SCH (19:45)
[2018-06-20] MEDS ORDERED: MAGNESIUM HYDROXIDE 30 ML LIQUID UDC PO PRN (19:45)
[2018-06-20] MEDS: IV NS 1000 ML 1,000 ML IV SCH (19:45)
--- NOTE | 2018-06-20 20:05 | NUR ---
Lab called to report Lactic acid 2.1. Called MD Del Cid, he ordered to have Lactic Acid rechecked in the AM. Will continue to monitor.
--- NOTE | 2018-06-20 20:10 | NUR ---
Received patient from ER via gurney. Caregiver at bedside. Awake and oriented x 0. Patient appears anxious to be here. nursing home assessment done. Noted. IV on the right AC, patent and intact. Vital signs stable. Sating at 95% in room air. Sacral redness. BM x 1. Dickinson draining clear bandar color urine. Noted bilateral lower leg redness and swelling. Safety initiated. Call light within reach. Bed in low and locked position. Bed alarm on. Will closely monitor.
[2018-06-20 20:21] LABS: BILIRUBIN,DIRECT 0.2 mg/dL (0.0-0.2); BILIRUBIN,TOTAL 0.8 mg/dL (0.2-1.0); TOTAL PROTEIN, SERUM 7.2 g/dL (6.4-8.2)
[2018-06-20] MEDS: SENNOSIDES 1 TABLET PO SCH (21:00)
[2018-06-20] MEDS ORDERED: TRAZODONE 50 MG TABLET PO SCH (21:00)
[2018-06-20] MEDS: ATORVASTATIN 10 MG TABLET PO SCH (21:52)
[2018-06-20] MEDS: ACETAMINOPHEN 325 MG TABLET PO PRN (21:52)
[2018-06-20] MEDS: PIPERACILLIN/TAZOBACTAM/D5W 50 ML IV SCH (22:04)
[2018-06-21] MEDS: HYDROCODONE/APAP 5-325MG TABLET PO PRN ×2 (02:35→09:23)
--- NOTE | 2018-06-21 02:39 | NUR ---
C/O pain in his legs. Patient appears anxious and uncomfortable. Medication given 5-325 [place], will closely monitor.
[2018-06-21 04:00] VITALS: BP 94/52
[2018-06-21] MEDS: PIPERACILLIN/TAZOBACTAM/D5W 50 ML IV SCH ×3 (05:09→21:38)
[2018-06-21] MEDS: IV NS 1000 ML 1,000 ML IV SCH ×2 (05:09→17:14)
--- NOTE | 2018-06-21 05:55 | NUR ---
No changes t/o shift. 1:1 sitter at bedside. C/o pain in his legs, meds given, stated. relief. IV ABX infusing on the new IV site on the left FA # 20. Afebrile. Dickinson draining bandar color urine. Noted bilateral lower ext. redness. All meds given as ordered except 0700 PO meds refused. Safety and comfort maintained t/o shift, will continue to monitor.
[2018-06-21] MEDS: PANTOPRAZOLE SODIUM 40 MG TABLET.DR PO SCH (06:07)
[2018-06-21 06:37] LABS: BASOPHILS % (AUTO) 0.3 % (0.0-2.0); EOSINOPHILS % (AUTO) 0.3 % (0.0-7.0); HEMOGLOBIN 8.4 g/dL (12.5-16.3); LYMPHOCYTES # (AUTO) 0.8 K/uL (20.0-40.0); LYMPHOCYTES % (AUTO) 8.1 % (20.5-51.5); MEAN CORPUSCULAR HEMOGLOBIN 28.7 uug (23.8-33.4); MEAN CORPUSCULAR HGB CONC 34 g/dL (32.5-36.3); MEAN CORPUSCULAR VOLUME 85.2 fL (73.0-96.2); MONOCYTES # (AUTO) 1.2 K/uL (2.0-10.0); MONOCYTES % (AUTO) 11.5 % (0.0-11.0); NEUTROPHILS # (AUTO) 8.2 K/uL (1.8-8.9); NEUTROPHILS % (AUTO) 79.8 % (38.5-71.5); PLATELET COUNT (AUTO) 300 K/uL (152-348); RED BLOOD CELL COUNT(AUTO) 2.93 MIL/uL (4.06-5.63); WHITE BLOOD COUNT (AUTO) 10.3 K/uL (3.6-10.2)
[2018-06-21 06:50] LABS: CARBON DIOXIDE 29 mmol/L (21-32); CHLORIDE 102 mmol/L (98-107); CHOLESTEROL 179 mg/dL (<200); GLUCOSE 104 mg/dL (74-106); HDL CHOLESTEROL 49 mg/dL (40-60); MAGNESIUM 2.1 mg/dL (1.8-2.4); POTASSIUM 4.4 mmol/L (3.5-5.1); TRIGLYCERIDES 89 MG/DL (30-150); UREA NITROGEN, BLOOD 26 mg/dL (7-18)
--- NOTE | 2018-06-21 07:30 | NUR ---
RECEIVED PATIENT FROM DRAGSAW OPERATOR. PATIENT IS ALERT AND ORIENTED TO SELF ONLY. NO APPARENT SIGNS OF DISTRESS OR PAIN. VSS. 1:1 SITTER. WILL CONTINUE TO MONITOR. Addendum: 06/21/18 at 1849 by BARB HOPE RN FALL PRECAUTION IMPLEMENTED, CAREGIVER AT BEDSIDE.
[2018-06-21] MEDS ORDERED: DIVALPROEX 500 MG TABLET.DR PO SCH (09:00)
[2018-06-21] MEDS ORDERED: Medication Not On Formulary EA (Sodium Chloride 1 GM) PO SCH (09:00)
[2018-06-21] MEDS: ASPIRIN EC 81 MG TABLET.DR PO SCH (09:22)
[2018-06-21] MEDS: SODIUM CHLORIDE 1,000 MG TABLET PO SCH ×3 (09:23→17:14)
[2018-06-21] MEDS: DOCUSATE SODIUM 100 MG CAPSULE PO SCH ×3 (09:23→17:14)
[2018-06-21] MEDS: TAMSULOSIN HCL 0.4 MG CAP.SR.24H PO SCH (09:24)
[2018-06-21] MEDS: FERROUS SULFATE 325 MG TABEC PO SCH (09:24)
--- NOTE | 2018-06-21 17:22 | NUR ---
AFTER MULTIPLE ATTEMPTS OF TRYING TO GIVE PATIENT MEDICATION, HE REFUSED. DID NOT ADMINISTER 1700 MEDICATIONS.
--- NOTE | 2018-06-21 18:46 | NUR ---
IS AWARE OF BILATERAL REDNESS ON LEGS AND SPOKE TO SON FRANCA. NOTED RIGHT BUTTOCKS BRUISING AND PATIENT EXPERIENCES PAIN UPON CHANGING POSITIONS. XRAY ORDERED, PENDING RESULTS. UA SAMPLE SENT TO LAB PENDING RESULTS. HELD SEDATIVE MEDICATIONS PER . PATIENT REFUSED PM MEDS, DESPITE MULTIPLE ATTEMPTS. Addendum: 06/21/18 at 1849 by BARB HOPE RN NO FALLS NOTED ON THE SHIFT
[2018-06-21 19:00] VITALS: BP 136/76
--- NOTE | 2018-06-21 19:30 | NUR ---
Received pt awake, talkative, up in bed. AxO x1 to name, 1:1 sitter at bedside for safety. Pt has episodes of confusion. Reorientation and therapeutic communication necessary. Denies pain, SOB or dizziness. No acute distress noted. Safety precautions and comfort measures in place. Call light within reach.
[2018-06-21] MEDS: ATORVASTATIN 10 MG TABLET PO SCH (21:37)
[2018-06-21] MEDS: SENNOSIDES 1 TABLET PO SCH ×2 (21:38→21:57)
[2018-06-22] MEDS: IV NS 1000 ML 1,000 ML IV SCH ×2 (02:23→11:50)
[2018-06-22 04:00] VITALS: BP 161/85
[2018-06-22] MEDS: PIPERACILLIN/TAZOBACTAM/D5W 50 ML IV SCH ×3 (05:31→21:04)
[2018-06-22] MEDS: PANTOPRAZOLE SODIUM 40 MG TABLET.DR PO SCH (06:16)
--- NOTE | 2018-06-22 06:35 | NUR ---
Pt had episodes of restlessness t/o the night. Awake, AxO x1 and talkative. 1:1 sitter at bedside for safety. Pt denies pain, dizziness or SOB. F/C in place. Kept pt clean and dry. No acute distress noted. Safety precautions maintained at all times. Call light within reach.
[2018-06-22 07:22] VITALS: BP 153/72
[2018-06-22] MEDS: HYDROCODONE/APAP 5-325MG TABLET PO PRN ×3 (08:38→23:28)
[2018-06-22] MEDS: DOCUSATE SODIUM 100 MG CAPSULE PO SCH ×2 (08:56→17:00)
[2018-06-22] MEDS: FERROUS SULFATE 325 MG TABEC PO SCH (08:56)
[2018-06-22] MEDS: TAMSULOSIN HCL 0.4 MG CAP.SR.24H PO SCH (09:00)
[2018-06-22] MEDS: DIVALPROEX 250 MG TABLET.DR PO SCH ×3 (09:00→17:30)
[2018-06-22] MEDS: SODIUM CHLORIDE 1,000 MG TABLET PO SCH ×2 (09:00→17:00)
[2018-06-22] MEDS: ASPIRIN EC 81 MG TABLET.DR PO SCH (09:00)
[2018-06-22] MEDS: ALPRAZOLAM 0.25 MG TABLET PO PRN ×2 (15:08→23:58)
--- NOTE | 2018-06-22 18:41 | NUR ---
PT THROUGHOUT THE DAY HAS BEEN RESTLESS, NOT ALLOWING CARE, REFUSING MEDICATION, HYPERVERBAL. UPON ASSESSMENT PT IS ABLE TO SWALLOW MEDICATIONS, PT REFUSES TO TAKE SELECT MEDICATION. PT HAS A 1:1 SITTER FOR SAFETY. PT WISHES TO GO BACK TO [facility], WAS AT BEDSIDE TODAY. PT WAS GIVEN NORCO AT APPROX 1740 FOR PAIN ON LEG. PT WAS UNABLE TO USE PAIN SCALE. FLACC WAS USE TO DETERMINE A 10/10 PAIN. PT SHOWS NO SIGNS OF RESPIRATORY DISTRESS. CONTINUE TO MONITOR PT.
--- NOTE | 2018-06-22 19:20 | NUR ---
PT ASLEEP ON BED COMFORTABLY. PT IV INTACT. SITTER AT BEDSIDE FOR SAFETY. PT SHOWS NO SIGNS OF DISTRESS. SAFETY AND COMFORT PROVIDED. WILL CONTINUE TO MONITOR.
[2018-06-22] MEDS: ATORVASTATIN 10 MG TABLET PO SCH (21:08)
[2018-06-22 21:17] VITALS: BP 144/71
[2018-06-22] MEDS ORDERED: IV NS 1000 ML 1,000 ML IV PRN (22:00)
[2018-06-23] MEDS: PIPERACILLIN/TAZOBACTAM/D5W 50 ML IV SCH (05:18)
[2018-06-23] MEDS: PANTOPRAZOLE SODIUM 40 MG TABLET.DR PO SCH (06:12)
--- NOTE | 2018-06-23 06:24 | NUR ---
PT SLEPT INTERMITTENTLY. PT SHOWS NO SIGNS OF ACUTE DISTRESS. IV INTACT AND PATENT. PT HAD EPISODES OF RESTLESSNESS AND WANT TO GET OUT OF THE BED.PT GIVEN XANAX FOR RESTLESSNESS AND ANXIETY. CHARGE NURSE AWARE.PRESCRIBED MEDICATION GIVEN AND PT TOLERATED IT WELL SITTER AT BEDSIDE FOR SAFETY. SAFETY AND COMFORT PROVIDED. WILL ENDORSE ACCORDINGLY TO INCOMING NURSE FOR CONTINUITY OF CARE.
[2018-06-23 06:37] VITALS: BP_SYST 156; BP_SYST 166; BP_DIAS 66; BP_DIAS 90
[2018-06-23] MEDS: DIVALPROEX 250 MG TABLET.DR PO SCH ×2 (08:35→12:26)
[2018-06-23] MEDS: TAMSULOSIN HCL 0.4 MG CAP.SR.24H PO SCH (08:35)
[2018-06-23] MEDS: ALPRAZOLAM 0.25 MG TABLET PO PRN (08:36)
[2018-06-23] MEDS: ASPIRIN EC 81 MG TABLET.DR PO SCH (08:36)
[2018-06-23] MEDS: HYDROCODONE/APAP 5-325MG TABLET PO PRN (08:36)
[2018-06-23] MEDS: DOCUSATE SODIUM 100 MG CAPSULE PO SCH (08:42)
[2018-06-23] MEDS: FERROUS SULFATE 325 MG TABEC PO SCH (08:42)
[2018-06-23] MEDS: SODIUM CHLORIDE 1,000 MG TABLET PO SCH (08:43)
[2018-06-23 09:52] LABS: BASOPHILS # (AUTO) 0.1 K/uL (0.0-8.0); BASOPHILS % (AUTO) 1.1 % (0.0-2.0); EOSINOPHILS # (AUTO) 0.3 K/uL (0.0-0.7); EOSINOPHILS % (AUTO) 5.1 % (0.0-7.0); HEMATOCRIT 25.7 % (36.7-47.1); HEMOGLOBIN 8.8 g/dL (12.5-16.3); LYMPHOCYTES # (AUTO) 0.9 K/uL (20.0-40.0); LYMPHOCYTES % (AUTO) 13.8 % (20.5-51.5); MEAN CORPUSCULAR HEMOGLOBIN 29.7 uug (23.8-33.4); MEAN CORPUSCULAR HGB CONC 34 g/dL (32.5-36.3); MEAN CORPUSCULAR VOLUME 86.5 fL (73.0-96.2); MONOCYTES # (AUTO) 0.9 K/uL (2.0-10.0); MONOCYTES % (AUTO) 14.3 % (0.0-11.0); NEUTROPHILS # (AUTO) 4.3 K/uL (1.8-8.9); NEUTROPHILS % (AUTO) 65.7 % (38.5-71.5); PLATELET COUNT (AUTO) 318 K/uL (152-348); RED BLOOD CELL COUNT(AUTO) 2.97 MIL/uL (4.06-5.63); WHITE BLOOD COUNT (AUTO) 6.6 K/uL (3.6-10.2)
[2018-06-23 10:01] LABS: CARBON DIOXIDE 22 mmol/L (21-32); CHLORIDE 103 mmol/L (98-107); CREATININE 0.9 mg/dL (0.6-1.3); GLUCOSE 139 mg/dL (74-106); POTASSIUM 3.8 mmol/L (3.5-5.1); UREA NITROGEN, BLOOD 14 mg/dL (7-18)
[2018-06-23 12:00] VITALS: BP 96/51
--- NOTE | 2018-06-23 12:25 | NUR ---
REMOVED LEBRON CATHETER THAT PT CAME INTO THE HOSPITAL WITH.
[2018-06-23] MEDS: ACETAMINOPHEN 325 MG TABLET PO PRN (12:26)
--- NOTE | 2018-06-23 12:31 | NUR ---
LEBRON CATHETER INSERTED. 16 KYRGYZ.
--- NOTE | 2018-06-23 14:15 | NUR ---
PT DC TO [facility] VIA AMBULANCE. PT IS STABLE TO DC. CALM BUT NOT COOPERATIVE WITH CARE. IV AND ID BAND REMOVED. EXIT CARE PACKET SENT WITH PT. PICTURES TAKEN OF SKIN AND PUT INTO THE CHART. DC WITH NEW LEBRON CATHETER.
== END 2018-06-23 14:15 | DRG 871 ==
LOC: ER 17:05 → MED 19:36
PROVIDERS: ADMIT Internal Medicine; ATTEND Internal Medicine
DX: A41.9 Sepsis, unspecified organism (principal); G93.41 Metabolic encephalopathy; N39.0 Urinary tract infection, site not specified; F03.90 Unspecified dementia, unspecified severity, without behavioral disturbance, psychotic disturbance, mood disturbance, and anxiety; I10 Essential (primary) hypertension; D63.8 Anemia in other chronic diseases classified elsewhere; E78.5 Hyperlipidemia, unspecified; F41.9 Anxiety disorder, unspecified; K21.9 Gastro-esophageal reflux disease without esophagitis; N40.0 Benign prostatic hyperplasia without lower urinary tract symptoms; Z79.82 Long term (current) use of aspirin; G89.29 Other chronic pain; Z79.899 Other long term (current) drug therapy; M79.604 Pain in right leg; M79.605 Pain in left leg; R53.1 Weakness; M19.90 Unspecified osteoarthritis, unspecified site; Z87.440 Personal history of urinary (tract) infections
CPT/HCPCS: 36415; 71045; 73502; 80164; 83605; 83735; 84100; 85025; 87040; 87086; 92523; 92610; 93005; A4663; G0378; J2543; J3490; J7030; J7040